=== PATIENT | male | born 1960 | race Caucasian/White ===

== ENCOUNTER 2017-12-29 12:40 | Inpatient (IN) | payer OTHER ==
[2017-12-29 12:57] VITALS: BMI 24.5
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
[2017-12-29] MEDS ORDERED: MAGNESIUM CITRATE 300 ML BOTTLE PO PRN (13:21)
[2017-12-29] MEDS ORDERED: guaiFENesin/D-METHORPHAN HB 10 ML UNIT-DOSE CUPS PO PRN (13:21)
[2017-12-29] MEDS ORDERED: NICOTINE POLACRILEX 2 MG GUM BUC PRN (13:21)
[2017-12-29] MEDS ORDERED: ACETAMINOPHEN 325 MG TABLET (FP) PO PRN (13:21)
[2017-12-29] MEDS ORDERED: MENTHOL/PHENOL 1 EACH UD MM PRN (13:21)
[2017-12-29] MEDS ORDERED: P-EPHED 60MG/TRIPROLIDI 2.5MG TABLET PO PRN (13:21)
[2017-12-29] MEDS ORDERED: MAG HYDROX/AL HYDROX/SIMETH 30 ML UNIT-DOSE CUP PO PRN (13:21)
[2017-12-29] MEDS ORDERED: NAPROXEN 500 MG TABLET (FP) PO PRN (13:24)
[2017-12-29] MEDS: GABAPENTIN 300 MG CAPSULE (FP) PO SCH ×2 (16:00→22:08)
[2017-12-29] MEDS: metFORMIN HCL 500 MG TABLET (FP) PO SCH (17:28)
[2017-12-29] MEDS: chlordiazePOXIDE HCL 25 MG CAPSULE PO PRN (17:28)
[2017-12-29] MEDS ORDERED: chlordiazePOXIDE HCL 10 MG CAPSULE PO ONE (20:54)
[2017-12-29] MEDS: hydrOXYzine PAMOATE 25 MG CAPSULE (FP) PO PRN (21:15)
--- NOTE | 2017-12-29 21:27 | PN ---
S Progress Note Note: Psychiatry Attending's on-call note : Called to address issue of seroquel. Mr Abreu is newly admitted to [address] [place] [address]. Patient is anxious about not missing his HS dose. S report reviewed. Medications reconciled. Vitals noted. Spoke to patient via telephone. Perceived as a reliable historian. " I have been on that medication for several years ". Patient is concerned over not being able to sleep tonight. " They promised me, downstairs, that someone would write me a dose ". " I have my bottles with me as proof that I am telling the truth ". Reassurance given to the patient. Regulations explained to patient. Medication confirmed by review of pharmacy claims of 12/28/17. At [facility]. Intervention : Seroquel 200 mg po hs. Dose is reduced. Precaution against drug-drug interactions. Possible with ETOH detoxification regimen, initiated on admission. Side effects/benefits revisited briefly with the patient. Made aware of potential for oversedation, accidental falls. Mr Abreu agrees to this plan of care . Titration will be done in AM after psychiatric evaluation.
[2017-12-29] MEDS: THIAMINE HCL 100 MG TABLET (FP) PO SCH (22:08)
[2017-12-29] MEDS: QUEtiapine FUMARATE 200 MG TABLET PO SCH (22:08)
[2017-12-29] MEDS: MELATONIN 5 MG TABLETS PO PRN (22:08)
[2017-12-29] MEDS: chlordiazePOXIDE HCL 25 MG CAPSULE PO SCH (22:08)
[2017-12-29 22:29] LABS: URINE APPEARANCE CLEAR; URINE BILIRUBIN NEGATIVE (<2.0 mg/dL); URINE COLOR COLORLESS; URINE GLUCOSE (UA) NEGATIVE (NEGATIVE); URINE KETONE NEGATIVE (NEGATIVE); URINE LEUK ESTERASE NEGATIVE (NEGATIVE); URINE NITRITE NEGATIVE (NEGATIVE); URINE PROTEIN NEGATIVE (NEGATIVE); URINE UROBILINOGEN NEGATIVE mg/dL (0.2-1.0)
[2017-12-29] MEDS: rOPINIRole HCL 1 MG TABLET (FP) PO SCH (23:55)
[2017-12-30] MEDS: metFORMIN HCL 500 MG TABLET (FP) PO SCH ×2 (07:08→17:25)
[2017-12-30] MEDS: chlordiazePOXIDE HCL 25 MG CAPSULE PO SCH ×4 (07:08→22:10)
[2017-12-30] MEDS: glipiZIDE 5 MG TABLET (FP) PO SCH (07:09)
[2017-12-30] MEDS: GABAPENTIN 300 MG CAPSULE (FP) PO SCH ×3 (07:09→22:10)
--- NOTE | 2017-12-30 07:46 | CONSULT ---
[facility] Psychiatric Consult - Data Date of interview: 12/30/17 Admission source: [facility] Identifying data: This is a 57 years old male, , father of two, homeless, with no income, with history of Bipolar Disorder, history of npsychiatric hospitalizations, reports history of Alcohol, Cocaine and Nicotine dependence, reports alcohol withdrawal symptoms and seeking detox. Substance Abuse History: Patient reports long chronic history of Alcohol dependence, , Cocaine and Nixotine dependence as well, , reports Alcohol withdrawal symptoms on admission, poor historian. Medical History: Restless leg syndrom, DM-II, Muscle Neuropathy Psychiatric History: Patient reportsm history of depression and anxiety, as per computer carries Bipolar Disorder, reports most recent psychiatric admission on 03-14 nonths ago at [facility] for safety, poor historyn, denies suicidal, homicidal history. Patient reports taking p[rior to admnission: Seroquel 400mg po qhs. Gabapentin 300mg po tid. 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 Patient agrees to be on Seroquel 200mg po qhs during detox protocol. Physical/Sexual Abuse/Trauma History: Denies Additional Comment: Seroquel 200mg po qhs. Gabapentin 300mg po tid Mental Status Exam - Mental Status Exam Alert and Oriented to: Person Cognitive Function: Fair Patient Appearance: Unkempt Mood: Sad Affect: Flat Patient Behavior: Sedated, Cooperative Speech Pattern: Inappropriate Voice Loudness: Mildly Soft/Quiet Thought Process: Circumstantial, Goal Oriented Thought Disorder: Being Controlled Hallucinations: Denies Suicidal Ideation: Denies Homicidal Ideation: Denies Insight/Judgement: Fair Sleep: Difficulty falling asleep Appetite: Weight loss Muscle strength/Tone: Mild Hypotonicity Gait/Station: Shuffling Additional Comments: Seroquel 200mg po qhs. Gabapentin 300mg po tid Psychiatric Findings - Problem List ([place] 1, 2,3) (1) Alcohol intoxication Current Visit: Yes Status: Acute Qualifiers: Complication of substance-induced condition: uncomplicated Qualified Code(s ): F10.920 - Alcohol use, unspecified with intoxication, uncomplicated (2) Cocaine dependence Current Visit: Yes Status: Chronic Qualifiers: Substance use status: uncomplicated Qualified Code(s): F14.20 - Cocaine dependence, uncomplicated (3) Diabetes Current Visit: Yes Status: Chronic Qualifiers: Diabetes mellitus type: type 2 Diabetes mellitus complication status: without complication (4) Nicotine dependence Current Visit: Yes Status: Chronic Qualifiers: Nicotine product type: cigarettes (5) Restless leg syndrome Current Visit: Yes Status: Chronic - Initial Treatment Plan Initial Treatment Plan: Seroquel 200mg po qhs. Gabapentin 300mg po tid
[2017-12-30] MEDS: FLUTICASONE PROP 0.05% 16 GM NASAL SPRAY NS SCH (10:10)
[2017-12-30] MEDS: PRENATAL VITAMINS W/ FOLIC ACID TABLET (FP) PO SCH (10:10)
[2017-12-30] MEDS: MAGNESIUM HYDROX 2400MG/30ML ORAL SUSPENSION 30 ML CUP PO PRN (10:12)
[2017-12-30 10:31] LABS: HEMATOCRIT 40.6 % (35.4-49); HEMOGLOBIN 13.1 GM/dL (11.7-16.9); MCH 31.4 pg (25.7-33.7); MCHC 32.2 g/dl (32.0-35.9); MEAN CELL VOLUME 97.5 fl (80-96); MEAN PLT VOLUME 11.7 fl (7.5-11.1); PLATELET COUNT 213 K/MM3 (134-434); RBC 4.17 M/mm3 (4.00-5.60); RDW 14.2 % (11.9-15.9); WHITE BLOOD COUNT 8.8 K/mm3 (4.0-10.0)
[2017-12-30 11:11] LABS: ALBUMIN 3.6 g/dl (3.4-5.0); ALK PHOS 72 U/L (45-117); ANION GAP 11 MMOL/L (8-16); BILIRUBIN,TOTAL 0.2 mg/dL (0.2-1); BLOOD UREA NITROGEN 15 mg/dL (7-18); CALCIUM 8.7 mg/dL (8.5-10.1); CHLORIDE 102 mmol/L (98-107); CO2 25 mmol/L (21-32); CREATININE 1.1 mg/dL (0.55-1.3); GLUCOSE,RANDOM 208 mg/dL (74-106); POTASSIUM 4.5 mmol/L (3.5-5.1); SGOT/AST 15 U/L (15-37); SGPT/ALT 20 U/L (13-61); SODIUM 139 mmol/L (136-145); TOT PROT 6.8 g/dl (6.4-8.2)
--- NOTE | 2017-12-30 11:23 | PN ---
S CIWA - CIWA Score Nausea/Vomitin-Mild Nausea/No Vomiting Muscle Tremors: 3 Anxiety: 2 Agitation: 2 Paroxysmal Sweats: 1-Minimal Palms Moist Orientation: 1-Uncertain about Date Tacttile Disturbances: 1-Very Mild Itch/Numbness Auditory Disturbances: 1-Very Mild Visual Disturbances: 0-None Headache: 1-Very Mild CIWA-Ar Total Score: 13 BHS Progress Note (SOAP) Subjective: sweat tremor anxiety restlessness trouble sleep at night Objective: 12/30/17 11:22 Vital Signs Temperature 98.1 F 12/30/17 09:51 Pulse Rate 78 12/30/17 09:51 Respiratory Rate 18 12/30/17 09:51 Blood Pressure 114/53 L 12/30/17 09:51 O2 Sat by Pulse Oximetry (%) Laboratory Last Values WBC 8.8 K/mm3 (4.0-10.0) 12/30/17 06:00 RBC 4.17 M/mm3 (4.00-5.60) 12/30/17 06:00 Hgb 13.1 GM/dL (11.7-16.9) 12/30/17 06:00 Hct 40.6 % (35.4-49) 12/30/17 06:00 MCV 97.5 fl (80-96) H 12/30/17 06:00 MCH 31.4 pg (25.7-33.7) 12/30/17 06:00 MCHC 32.2 g/dl (32.0-35.9) 12/30/17 06:00 RDW 14.2 % (11.9-15.9) 12/30/17 06:00 Plt Count 213 K/MM3 (134-434) 12/30/17 06:00 MPV 11.7 fl (7.5-11.1) H 12/30/17 06:00 Sodium 139 mmol/L (136-145) 12/30/17 06:00 Potassium 4.5 mmol/L (3.5-5.1) 12/30/17 06:00 Chloride 102 mmol/L (98-107) 12/30/17 06:00 Carbon Dioxide 25 mmol/L (21-32) 12/30/17 06:00 Anion Gap 11 MMOL/L (8-16) 12/30/17 06:00 BUN 15 mg/dL (7-18) 12/30/17 06:00 Creatinine 1.1 mg/dL (0.55-1.3) 12/30/17 06:00 Creat Clearance w eGFR > 60 (>60) 12/30/17 06:00 POC Glucometer 162 UNITS (80-120) 12/30/17 07:05 Random Glucose 208 mg/dL (74-106) H 12/30/17 06:00 Calcium 8.7 mg/dL (8.5-10.1) 12/30/17 06:00 Total Bilirubin 0.2 mg/dL (0.2-1) 12/30/17 06:00 AST 15 U/L (15-37) 12/30/17 06:00 ALT 20 U/L (13-61) 12/30/17 06:00 Alkaline Phosphatase 72 U/L (45-117) 12/30/17 06:00 Total Protein 6.8 g/dl (6.4-8.2) 12/30/17 06:00 Albumin 3.6 g/dl (3.4-5.0) 12/30/17 06:00 Urine Color Colorless 12/29/17 22:00 Urine Appearance Clear 12/29/17 22:00 Urine pH 5.0 (5.0-8.0) 12/29/17 22:00 Ur Specific [place] 1.004 (1.010-1.035) L 12/29/17 22:00 Urine Protein Negative (NEGATIVE) 12/29/17 22:00 Urine Glucose (UA) Negative (NEGATIVE) 12/29/17 22:00 Urine Ketones Negative (NEGATIVE) 12/29/17 22:00 Urine Blood Negative (NEGATIVE) 12/29/17 22:00 Urine Nitrite Negative (NEGATIVE) 12/29/17 22:00 Urine Bilirubin Negative (<2.0 mg/dL) 12/29/17 22:00 Urine Urobilinogen Negative mg/dL (0.2-1.0) 12/29/17 22:00 Ur Leukocyte Esterase Negative (NEGATIVE) 12/29/17 22:00 lab noted Assessment: 12/30/17 11:22 withdrawal sx Plan: continue detox
[2017-12-30] MEDS ORDERED: FLU VACCINE QUAD 60 MCG/0.5 ML (MDV 18-19) IM ONE (12:00)
[2017-12-30] MEDS: QUEtiapine FUMARATE 200 MG TABLET PO SCH (22:10)
[2017-12-30] MEDS: THIAMINE HCL 100 MG TABLET (FP) PO SCH (22:10)
[2017-12-30] MEDS: rOPINIRole HCL 1 MG TABLET (FP) PO SCH (22:11)
[2017-12-30] MEDS: MELATONIN 5 MG TABLETS PO PRN (23:25)
[2017-12-31] MEDS: chlordiazePOXIDE HCL 25 MG CAPSULE PO SCH ×3 (05:26→17:21)
[2017-12-31] MEDS: GABAPENTIN 300 MG CAPSULE (FP) PO SCH (05:26)
[2017-12-31] MEDS: metFORMIN HCL 500 MG TABLET (FP) PO SCH ×2 (06:26→17:21)
[2017-12-31] MEDS: glipiZIDE 5 MG TABLET (FP) PO SCH (06:26)
[2017-12-31] MEDS: FLUTICASONE PROP 0.05% 16 GM NASAL SPRAY NS SCH (10:33)
[2017-12-31] MEDS: hydrOXYzine PAMOATE 25 MG CAPSULE (FP) PO PRN (10:35)
[2017-12-31] MEDS: PRENATAL VITAMINS W/ FOLIC ACID TABLET (FP) PO SCH (10:36)
[2017-12-31] MEDS ORDERED: GABAPENTIN 300 MG CAPSULE (FP) PO SCH (10:52)
--- NOTE | 2017-12-31 13:17 | PN ---
S CIWA - CIWA Score Nausea/Vomitin-No Nausea/No Vomiting Muscle Tremors: 3 Anxiety: 1-Mildly Anxious Agitation: 2 Paroxysmal Sweats: 1-Minimal Palms Moist Orientation: 0-Oriented Tacttile Disturbances: 1-Very Mild Itch/Numbness Auditory Disturbances: 0-None Visual Disturbances: 0-None Headache: 1-Very Mild CIWA-Ar Total Score: 9 BHS Progress Note (SOAP) Subjective: sweat tremor no gi distress less anxiety social with peers in day rooms Objective: 12/31/17 13:16 Vital Signs Temperature 97.9 F 12/31/17 09:31 Pulse Rate 76 12/31/17 09:31 Respiratory Rate 18 12/31/17 09:31 Blood Pressure 109/63 12/31/17 09:31 O2 Sat by Pulse Oximetry (%) Laboratory Last Values WBC 8.8 K/mm3 (4.0-10.0) 12/30/17 06:00 RBC 4.17 M/mm3 (4.00-5.60) 12/30/17 06:00 Hgb 13.1 GM/dL (11.7-16.9) 12/30/17 06:00 Hct 40.6 % (35.4-49) 12/30/17 06:00 MCV 97.5 fl (80-96) H 12/30/17 06:00 MCH 31.4 pg (25.7-33.7) 12/30/17 06:00 MCHC 32.2 g/dl (32.0-35.9) 12/30/17 06:00 RDW 14.2 % (11.9-15.9) 12/30/17 06:00 Plt Count 213 K/MM3 (134-434) 12/30/17 06:00 MPV 11.7 fl (7.5-11.1) H 12/30/17 06:00 Sodium 139 mmol/L (136-145) 12/30/17 06:00 Potassium 4.5 mmol/L (3.5-5.1) 12/30/17 06:00 Chloride 102 mmol/L (98-107) 12/30/17 06:00 Carbon Dioxide 25 mmol/L (21-32) 12/30/17 06:00 Anion Gap 11 MMOL/L (8-16) 12/30/17 06:00 BUN 15 mg/dL (7-18) 12/30/17 06:00 Creatinine 1.1 mg/dL (0.55-1.3) 12/30/17 06:00 Creat Clearance w eGFR > 60 (>60) 12/30/17 06:00 POC Glucometer 223 UNITS (80-120) 12/31/17 05:28 Random Glucose 208 mg/dL (74-106) H 12/30/17 06:00 Calcium 8.7 mg/dL (8.5-10.1) 12/30/17 06:00 Total Bilirubin 0.2 mg/dL (0.2-1) 12/30/17 06:00 AST 15 U/L (15-37) 12/30/17 06:00 ALT 20 U/L (13-61) 12/30/17 06:00 Alkaline Phosphatase 72 U/L (45-117) 12/30/17 06:00 Total Protein 6.8 g/dl (6.4-8.2) 12/30/17 06:00 Albumin 3.6 g/dl (3.4-5.0) 12/30/17 06:00 Urine Color Colorless 12/29/17 22:00 Urine Appearance Clear 12/29/17 22:00 Urine pH 5.0 (5.0-8.0) 12/29/17 22:00 Ur Specific [place] 1.004 (1.010-1.035) L 12/29/17 22:00 Urine Protein Negative (NEGATIVE) 12/29/17 22:00 Urine Glucose (UA) Negative (NEGATIVE) 12/29/17 22:00 Urine Ketones Negative (NEGATIVE) 12/29/17 22:00 Urine Blood Negative (NEGATIVE) 12/29/17 22:00 Urine Nitrite Negative (NEGATIVE) 12/29/17 22:00 Urine Bilirubin Negative (<2.0 mg/dL) 12/29/17 22:00 Urine Urobilinogen Negative mg/dL (0.2-1.0) 12/29/17 22:00 Ur Leukocyte Esterase Negative (NEGATIVE) 12/29/17 22:00 RPR Titer Nonreactive (NONREACTIVE) 12/30/17 06:00 HIV 1&2 Antibody Screen Negative 12/30/17 06:00 HIV P24 Antigen Negative 12/30/17 06:00 lab noted Assessment: 12/31/17 13:16 withdrawal sx Plan: continue detox
[2017-12-31] MEDS: GABAPENTIN 400 MG CAPSULE (FP) PO SCH ×2 (13:29→22:24)
[2017-12-31] MEDS: chlordiazePOXIDE HCL 25 MG CAPSULE PO PRN (13:29)
[2017-12-31] MEDS: QUEtiapine FUMARATE 200 MG TABLET PO SCH (22:24)
[2017-12-31] MEDS: MELATONIN 5 MG TABLETS PO PRN (22:24)
[2017-12-31] MEDS: chlordiazePOXIDE 5 MG CAPSULE PO SCH (22:24)
[2017-12-31] MEDS: THIAMINE HCL 100 MG TABLET (FP) PO SCH (22:24)
[2017-12-31] MEDS: rOPINIRole HCL 1 MG TABLET (FP) PO SCH (22:25)
[2018-01-01] MEDS: chlordiazePOXIDE 5 MG CAPSULE PO SCH ×2 (05:28→10:40)
[2018-01-01] MEDS: GABAPENTIN 400 MG CAPSULE (FP) PO SCH (05:29)
[2018-01-01] MEDS: metFORMIN HCL 500 MG TABLET (FP) PO SCH (06:44)
[2018-01-01] MEDS: glipiZIDE 5 MG TABLET (FP) PO SCH (06:45)
[2018-01-01 09:11] VITALS: BP 112/62; PULSE 99; TEMP 98.4
[2018-01-01] MEDS: PRENATAL VITAMINS W/ FOLIC ACID TABLET (FP) PO SCH (10:40)
[2018-01-01] MEDS: FLUTICASONE PROP 0.05% 16 GM NASAL SPRAY NS SCH (10:41)
--- NOTE | 2018-01-01 10:48 | PN ---
BHS Progress Note (SOAP) Subjective: irritable agitation sweats Objective: 01/01/18 10:47 Vital Signs Temperature 98.4 F 01/01/18 09:11 Pulse Rate 99 H 01/01/18 09:11 Respiratory Rate 18 01/01/18 09:11 Blood Pressure 112/62 01/01/18 09:11 O2 Sat by Pulse Oximetry (%) aaox3 ambulating no acute distress Assessment: 01/01/18 10:47 mild withdrawal sx Plan: continue detox increase fluids d/c in am
--- NOTE | 2018-01-01 10:49 | PN ---
Psychiatric Progress Note Vital Signs: Vital Signs Period Temp Pulse Resp BP Sys/Clale Pulse Ox Last 24 Hr 98.1 F-98.7 F 76-99 -18 112-137/61-70 Date of Session: 01/02/18 Chief Complaint:: "I need my seroquel increased." HPI: Patient with a history of alcohol, cocaine, and nicotine dependence. ROS: Restless leg syndrom, DM-II, Muscle Neuropathy Current Medications: Active Medications Generic Name Dose Route Start Last Admin Trade Name Freq PRN Reason Stop Dose Admin Acetaminophen 650 mg 12/29/17 13:21 Tylenol - PO Q4H PRN FEVER Al Hydroxide/Mg Hydroxide 30 ml 12/29/17 13:21 Mylanta Oral Suspension - PO Q6H PRN DYSPEPSIA Chlordiazepoxide HCl 15 mg 12/31/17 23:00 01/01/18 10:40 Librium - PO 01/01/18 17:01 15 mg [id number] WILD Administration Chlordiazepoxide HCl 25 mg 12/29/17 13:21 12/31/17 13:29 Librium - PO 01/01/18 13:20 25 mg Q4H PRN Administration WITHDRAWAL(CONT SUBST) Chlordiazepoxide HCl 10 mg 01/01/18 23:00 Librium - PO 01/02/18 17:01 [id number] WILD Eucalyptus/Menthol/Phenol/Sorbitol 1 each 12/29/17 13:21 Cepastat Lozenge - MM Q4H PRN SORE THROAT Fluticasone Propionate 2 spray 12/30/17 10:00 01/01/18 10:41 Flonase - NS 2 spray DAILY WILD Administration Gabapentin 400 mg 12/31/17 14:00 01/01/18 05:29 Neurontin - PO 400 mg TID WILD Administration Glipizide 5 mg 12/30/17 07:00 01/01/18 06:45 Glucotrol - PO 5 mg DAILY@0700 WILD Administration Guaifenesin 10 ml 12/29/17 13:21 Robitussin Dm - PO Q6H PRN COUGH Hydroxyzine Pamoate 25 mg 12/29/17 20:54 12/31/17 10:35 Vistaril - PO 25 mg Q4H PRN Administration FOR ITCHING Magnesium Citrate 300 ml 12/29/17 13:21 Citroma - PO Q48H PRN CONSTIPATION Magnesium Hydroxide 30 ml 12/29/17 13:21 12/30/17 10:12 Milk Of Magnesia - PO 30 ml DAILY PRN Administration CONSTIPATION Melatonin 5 mg 12/29/17 22:00 12/31/17 22:24 Melatonin PO 5 mg HS PRN Administration INSOMNIA Metformin HCl 1,000 mg 12/29/17 16:30 01/01/18 06:44 Glucophage - PO 1,000 mg BID@0700,1630 WILD Administration Nicotine Polacrilex 2 mg 12/29/17 13:21 Nicorette Gum - BUC Q2H PRN NICOTINE REPLACEMENT RX Multivit/Folic Acid/Iron 1 tab 12/30/17 10:00 01/01/18 10:40 Vitamins (Sjr) - PO 1 tab DAILY WILD Administration Pseudoephedrine/Triprolidine 1 combo 12/29/17 13:21 Actifed - PO TID PRN NASAL CONGESTION Quetiapine Fumarate 200 mg 12/29/17 22:00 12/31/17 22:24 Seroquel - PO 200 mg HS WILD Administration Ropinirole HCl 1 mg 12/29/17 22:00 12/31/17 22:25 Requip - PO 1 mg HS WILD Administration Thiamine HCl 100 mg 12/29/17 22:00 12/31/17 22:24 Vitamin B1 - PO 100 mg HS WILD Administration Medication(s) Change(s): Yes. Will increase seroquel 200mg to 300mg qhs. Current Side Effect: No Lab tests ordered: No Lab tests reviewed: Yes Provider note:: Patient requesting an increase in seroquel dosages. Dr. Mckinley and Dr. Gilbert's note read and appreciated. He is currently prescribed seroquel 200mg qhs but reports taking seroquel 400mg while at home. Medication was lowered upon admission to detox as a precaution against drug-drug interactions. Pharmacy claims reviewed. An electronic prescription of seroquel 400mg was sent to patient's pharmacy on 12/28/17 No oversedation noted. Will increase seroquel dose to 300mg. Benefits and side effects discussed. Verbal consent given. Total face to face time:: 25 Mental Status Exam - Mental Status Exam Alert and Oriented to: Time, Place, Person Cognitive Function: Good Patient Appearance: Well Groomed Mood: Hopeful Affect: Appropriate Patient Behavior: Appropriate, Cooperative Speech Pattern: Clear, Appropriate Voice Loudness: Normal Thought Process: Intact, Goal Oriented Thought Disorder: Not Present Hallucinations: Denies Suicidal Ideation: Denies Homicidal Ideation: Denies Insight/Judgement: Poor Sleep: Poorly Appetite: Fair Muscle strength/Tone: Normal Gait/Station: Normal Psychiatric Treatment Plan - Problem List (1) Alcohol dependence Current Visit: Yes (2) Cocaine dependence Current Visit: Yes Qualifiers: Substance use status: uncomplicated Qualified Code(s): F14.20 - Cocaine dependence, uncomplicated (3) Nicotine dependence Current Visit: Yes Qualifiers: Nicotine product type: cigarettes (4) Substance induced mood disorder Current Visit: Yes (5) Substance-induced sleep disorder Current Visit: Yes
[2018-01-01] MEDS: MAGNESIUM HYDROX 2400MG/30ML ORAL SUSPENSION 30 ML CUP PO PRN (10:59)
--- NOTE | 2018-01-01 13:51 | PN ---
BHS Progress Note Note: pt states I want to go home. Pt signed out AMA.
--- NOTE | 2018-01-01 13:56 | DS ---
[facility] Detox Discharge Summary Admission Date: 12/29/17 - History Present History: Alcohol Dependence, Cocaine Dependence - Physical Exam Results Vital Signs: Vital Signs Temperature 98.4 F 01/01/18 09:11 Pulse Rate 99 H 01/01/18 09:11 Respiratory Rate 18 01/01/18 09:11 Blood Pressure 112/62 01/01/18 09:11 O2 Sat by Pulse Oximetry (%) - Treatment Hospital Course: Discharged Condition Good - Medication Discharge Medications: Ambulatory Orders Fluticasone Prop 0.05% Nasal [Flonase -] 2 spray NS DAILY 12/29/17 Gabapentin [Neurontin -] 300 mg PO Q8H 12/29/17 Glipizide [Glipizide Xl] 5 mg PO DAILY 12/29/17 Metformin HCl [Glucophage] 1,000 mg PO BID 12/29/17 Naproxen [Naprosyn -] 500 mg PO BID 12/29/17 Quetiapine Fumarate [Seroquel -] 400 mg PO HS 12/29/17 Ropinirole HCl [Requip -] 1 mg PO HS 12/29/17 Quetiapine Fumarate [Seroquel -] 200 mg PO HS #30 tablet 12/30/17 - Diagnosis (1) Substance induced mood disorder Status: Acute (2) Substance-induced sleep disorder Status: Acute (3) Chronic pain Status: Chronic Qualifiers: Chronic pain type: chronic pain syndrome Qualified Code(s): G89.4 - Chronic pain syndrome (4) Cocaine dependence Status: Chronic Qualifiers: Substance use status: uncomplicated Qualified Code(s): F14.20 - Cocaine dependence, uncomplicated (5) Diabetes Status: Chronic Qualifiers: Diabetes mellitus type: type 2 Diabetes mellitus complication status: without complication (6) Nicotine dependence Status: Chronic Qualifiers: Nicotine product type: cigarettes (7) Restless leg syndrome Status: Chronic (8) Alcohol dependence with uncomplicated withdrawal Status: Chronic - AMA Did Patient Leave Against Medical Advice: Yes (going home.)
[2018-01-01] MEDS ORDERED: QUEtiapine FUMARATE 300 MG TABLET PO SCH (22:00)
[2018-01-01] MEDS ORDERED: chlordiazePOXIDE HCL 10 MG CAPSULE PO SCH (23:00)
== END 2018-01-01 12:31 | disposition left against medical advice (07) | DRG 894 ==
LOC: YASAS 12:40 → Y6N 15:14
PROVIDERS: ADMIT Neuromusculoskeletal Medicine & OMM; ATTEND Neuromusculoskeletal Medicine & OMM
PROC: HZ2ZZZZ Detoxification Services for Substance Abuse Treatment (ICD-10-PCS; principal; 2017-12-29)
DX: F10.230 Alcohol dependence with withdrawal, uncomplicated (principal); F14.20 Cocaine dependence, uncomplicated; F19.282 Other psychoactive substance dependence with psychoactive substance-induced sleep disorder; F17.210 Nicotine dependence, cigarettes, uncomplicated; F19.24 Other psychoactive substance dependence with psychoactive substance-induced mood disorder; E11.9 Type 2 diabetes mellitus without complications; Z79.84 Long term (current) use of oral hypoglycemic drugs; G25.81 Restless legs syndrome; G89.4 Chronic pain syndrome; Z59.0 Homelessness
CPT/HCPCS: 36415; 80053; 81003; 82962; 85027; 86593; 87389; 90688; G0008

== ENCOUNTER 2018-02-24 12:36 | Inpatient (IN) | payer OTHER ==
[2018-02-24 13:20] VITALS: BMI 22.1
--- NOTE | 2018-02-24 17:12 | HP ---
CIWA Score Nausea/Vomitin Muscle Tremors: 2 Anxiety: 2 Agitation: 2 Paroxysmal Sweats: 3 Orientation: 0-Oriented Tacttile Disturbances: 2-Mild Itch/Numbness/Burn Auditory Disturbances: 0-None Visual Disturbances: 0-None Headache: 2-Mild CIWA-Ar Total Score: 15 - Admission Criteria OASAS Guidelines: Admission for Medically Managed Detox: Requires at least one of the followin. CIWA greater than 12 2. Seizures within the past 24 hours 3. Delirium tremens within the past 24 hours 4. Hallucinations within the past 24 hours 5. Acute intervention needed for co occurring medical disorder 6. Acute intervention needed for co occurring psychiatric disorder 7. Severe withdrawal that cannot be handled at a lower level of care (continued vomiting, continued diarrhea, abnormal vital signs) requiring intravenous medication and/or fluids 8. Patient presents the following: CIWA greater than 12 Admission Criteria Met: Admission criteria met Admission ROS BHS - HPI Chief Complaint: I'm drinking too much - I have to to stop. Allergies/Adverse Reactions: Allergies Allergy/AdvReac Type Severity Reaction Status Date / Time No Known Allergies Allergy Verified 02/24/18 16:14 History of Present Illness: 57 y/o m pt with lonstanding h/o chronic alcoholism seeking detox and rehab. Exam Limitations: No Limitations - Ebola screening Have you traveled outside of the country in the last 21 days: No Have you had contact with anyone from an Ebola affected area: No Have you been sick,other than usual withdrawal symptoms: No Do you have a fever: No - Review of Systems Constitutional: Loss of Appetite, Malaise, Changes in sleep, Weakness, Unintentional Wgt. Loss (15 lbs x 2 months) EENT: reports: Nose Congestion, Dental Problems (need dental work) Respiratory: reports: No Symptoms reported Cardiac: reports: No Symptoms Reported GI: reports: Nausea, Poor Appetite : reports: No Symptoms Reported Musculoskeletal: reports: Muscle Pain, Other (restless legs) Integumentary: reports: Pruritus Neuro: reports: Headache Endocrine: reports: Increased Thirst, Increased Urine Hematology: reports: No Symptoms Reported Psychiatric: reports: Anxious, Depressed Other Systems: Reviewed and Negative Patient History - Patient Medical History Hx Anemia: No Hx Asthma: No Hx Chronic Obstructive Pulmonary Disease (COPD): No Hx Cancer: No Hx Cardiac Disorders: No Hx Congestive Heart Failure: No Hx Hypertension: No Hx Hypercholesterolemia: No Hx Pacemaker: No HX Cerebrovascular Accident: No Hx Seizures: No Hx Dementia: No Hx Diabetes: Yes Hx Gastrointestinal Disorders: No Hx Liver Disease: No Hx Genitourinary Disorders: No Hx Sexually Transmitted Disorders: No Hx Renal Disease (ESRD): No Hx Thyroid Disease: No Hx Human Immunodeficiency Virus (HIV): No Hx Hepatitis C: No Hx Depression: Yes Hx Suicide Attempt: No Hx Bipolar Disorder: Yes Hx Schizophrenia: No Other Medical History: arthritis - Patient Surgical History Past Surgical History: Yes Other Surgical History: R index finger sx for osteomyelitis - PPD History Previous Implant?: Yes Documented Results: Negative w/o proof Implanted On Prior [facility] Admission?: Yes Date: 12/31/17 PPD to be Administered?: No - Reproductive History Patient is a Female of Child Bearing Age (11 -55 yrs old): No - Smoking Cessation Smoking history: Current every day smoker Have you smoked in the past 12 months: Yes Aproximately how many cigarettes per day: 12 Cigars Per Day: 0 Hx Chewing Tobacco Use: No Initiated information on smoking cessation: Yes 'Breaking Loose' booklet given: 02/24/18 - Substance & Tx. History Hx Alcohol Use: Yes Hx Substance Use: Yes Substance Use Type: Alcohol, Tranquilizers Hx Substance Use Treatment: Yes ([facility]) - Substances Abused Alcohol Route: Oral Frequency: Daily Amount used: 3 pints vodka Age of first use: 14 Date of Last Use: 02/24/18 Cocaine Route: Smoking Frequency: 3-6 times per week Amount used: $20. Age of first use: 38 Date of Last Use: 02/23/18 Alprazolam (Xanax) Route: Oral Frequency: 1-2 times per week Amount used: 2-3mg Age of first use: 38 Date of Last Use: 02/22/18 Family Disease History - Family Disease History Family Disease History: Diabetes: Father, Mother (colon CA), CA: Mother, Other: Brother (d. liver disease age 43 ), Sister (1 sister with lupus , 1 sister A & W ), Son (2 sons A & W) Admission Physical Exam BHS - Vital Signs Vital Signs: Vital Signs - 24 hr 02/24/18 13:17 Temperature 98.7 F Pulse Rate 84 Respiratory 18 Rate Blood Pressure 138/67 57 y/o m pt aox3 in nad ,ambulating well cooperative with exam. 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 NML intact, Fully Oriented, Alert, Motor Strength 5/5 Integumentary: Yes: Moist Lymphatic: Yes: Within Normal Limits - Diagnostic (1) Alcohol dependence with uncomplicated withdrawal Current Visit: Yes Status: Chronic (2) Cocaine dependence Current Visit: Yes Status: Chronic Qualifiers: Substance use status: uncomplicated Qualified Code(s): F14.20 - Cocaine dependence, uncomplicated (3) Diabetes Current Visit: Yes Status: Chronic Qualifiers: Diabetes mellitus type: type 2 Diabetes mellitus complication status: without complication (4) Nicotine dependence Current Visit: Yes Status: Chronic Qualifiers: Nicotine product type: cigarettes (5) Restless leg syndrome Current Visit: Yes Status: Chronic (6) Bipolar 1 disorder Current Visit: Yes Status: Acute Cleared for Admission [facility] - Detox or Rehab [facility] Level of Care: Medically Managed Detox Regimen/Protocol: Librium [facility] Breath Alcohol Content Breath Alcohol Content: 0.071 Urine Drug Screen - Results Drug Screen Negative: No Urine Drug Screen Results: NIKUNJ-Cocaine, BAR-Barbiturates
[2018-02-24] MEDS ORDERED: NICOTINE POLACRILEX 4 MG GUM BC PRN (17:28)
[2018-02-24] MEDS ORDERED: MAG HYDROX/AL HYDROX/SIMETH 30 ML UNIT-DOSE CUP PO PRN (17:28)
[2018-02-24] MEDS ORDERED: P-EPHED 60MG/TRIPROLIDI 2.5MG TABLET PO PRN (17:28)
[2018-02-24] MEDS ORDERED: MENTHOL/PHENOL 1 EACH UD MM PRN (17:28)
[2018-02-24] MEDS ORDERED: MAGNESIUM CITRATE 300 ML BOTTLE PO PRN (17:28)
[2018-02-24] MEDS ORDERED: LOPERAMIDE HCL 2 MG CAPSULE PO PRN (17:28)
[2018-02-24] MEDS ORDERED: hydrOXYzine PAMOATE 25 MG CAPSULE (FP) PO PRN (17:28)
[2018-02-24] MEDS ORDERED: ACETAMINOPHEN 325 MG TABLET (FP) PO PRN (17:28)
[2018-02-24] MEDS ORDERED: chlordiazePOXIDE HCL 25 MG CAPSULE PO PRN (17:28)
[2018-02-24] MEDS ORDERED: chlordiazePOXIDE HCL 25 MG CAPSULE PO ONE (18:00)
[2018-02-24] MEDS ORDERED: QUEtiapine FUMARATE 200 MG TABLET PO ONE (20:19)
[2018-02-24] MEDS ORDERED: MELATONIN 5 MG TABLETS PO PRN (22:00)
[2018-02-24] MEDS: THIAMINE HCL 100 MG TABLET (FP) PO SCH (22:16)
[2018-02-24] MEDS: GABAPENTIN 300 MG CAPSULE (FP) PO SCH (22:17)
[2018-02-24] MEDS: chlordiazePOXIDE HCL 25 MG CAPSULE PO SCH (22:17)
[2018-02-25] MEDS: chlordiazePOXIDE HCL 25 MG CAPSULE PO SCH ×4 (05:57→22:06)
[2018-02-25] MEDS: GABAPENTIN 300 MG CAPSULE (FP) PO SCH ×3 (05:58→22:06)
[2018-02-25] MEDS: metFORMIN HCL 500 MG TABLET (FP) PO SCH ×2 (06:45→17:02)
[2018-02-25] MEDS ORDERED: INSULIN SLIDING SCALE (NOVOLOG) 1 VIAL SQ ONE (06:46)
[2018-02-25] MEDS: INSULIN SLIDING SCALE (NOVOLOG) 1 VIAL SQ SCH ×2 (07:48→17:02)
--- NOTE | 2018-02-25 08:59 | CONSULT ---
[facility] Psychiatric Consult - Data Date of interview: 02/25/18 Admission source: [facility] Identifying data: Patient is a 57 year old male, father of two, unemployed, and currently homeless. This is one of multiple admissions for patient. Patient admitted to for alcohol and cocaine dependence. Substance Abuse History: - Substance & Tx. History. Hx Alcohol Use: Yes. Hx Substance Use: Yes. Substance Use Type: Alcohol, Tranquilizers. Hx Substance Use Treatment: Yes ([facility] - Substances Abused. Alcohol. Route: Oral. Frequency: Daily. Amount used: 3 pints vodka. Age of first use: 14. Date of Last Use: 02/24/18. Cocaine. Route: Smoking. Frequency: 3-6 times per week. Amount used: $20. Age of first use: 38. Date of Last Use: 02/23/18. * * Alprazolam (Xanax). Route: Oral. Frequency: 1-2 times per week. Amount used : 2-3mg. Age of first use: 38. Date of Last Use: 02/22/18 Medical History: Diabetes, R index finger sx for osteomyelitis, arthritis Psychiatric History: Patient presented as fatigue and slightly lethargic. He was also irritable at first but was eventually able to cooperate with scenario writer and medical students. Mr. Abreu reports a history of multiple psychiatric hospitalizations at various facilities in [place] and [facility]. Self diagnosis of of bipolar disorder. [facility] [place] but states he has not seen his psychiatrist in two months because he did not get along with him. Patient is now receiving his prescriptions of seroquel 400mg from his primary care physician. Patient reports sub-optimal adhernence to seroquel. Mr. Galdamez denies h/o suicide attempt. Physical/Sexual Abuse/Trauma History: denies. Mental Status Exam - Mental Status Exam Alert and Oriented to: Time, Place, Person Cognitive Function: Good Patient Appearance: Well Groomed Mood: Euthymic, Irritable (irritable at first but was eventually able to cooperate with scenario writer and medical students. ) Affect: Mood Congruent Patient Behavior: Fatigued Speech Pattern: Delayed Voice Loudness: Moderately Soft/Quiet Thought Process: Goal Oriented Thought Disorder: Not Present Hallucinations: Denies Suicidal Ideation: Denies Homicidal Ideation: Denies Insight/Judgement: Poor Sleep: Fair Appetite: Fair Muscle strength/Tone: Normal Gait/Station: Normal Psychiatric Findings - Problem List ([place] 1, 2,3) (1) Alcohol dependence with uncomplicated withdrawal Current Visit: Yes Status: Acute (2) Cocaine dependence Current Visit: Yes Status: Chronic Qualifiers: Substance use status: uncomplicated Qualified Code(s): F14.20 - Cocaine dependence, uncomplicated (3) Nicotine dependence Current Visit: Yes Status: Chronic Qualifiers: Nicotine product type: cigarettes (4) Substance induced mood disorder Current Visit: Yes Status: Acute (5) Substance-induced sleep disorder Current Visit: Yes Status: Acute - Initial Treatment Plan Initial Treatment Plan: Psychoeducation provided. Detoxification in progress. Seroquel 400mg qhs ordered by ANGULAR JS DEVELOPER last night. Patient was lethargic and fatigue this morning and is agreeable to accepting a lower dose tonight. Will order Seroquel 300mg HS. Benefits and side effects discussed. Verbal consent given.
[2018-02-25] MEDS: NICOTINE 21 MG/24 HOURS TOPICAL PATCH TD SCH (10:03)
[2018-02-25] MEDS: PRENATAL VITAMINS W/ FOLIC ACID TABLET (FP) PO SCH (10:03)
[2018-02-25 10:58] LABS: HEMATOCRIT 38.4 % (35.4-49); HEMOGLOBIN 13.3 GM/dL (11.7-16.9); MCH 33.8 pg (25.7-33.7); MCHC 34.7 g/dl (32.0-35.9); MEAN CELL VOLUME 97.6 fl (80-96); MEAN PLT VOLUME 9.7 fl (7.5-11.1); PLATELET COUNT 224 K/MM3 (134-434); RBC 3.93 M/mm3 (4.00-5.60); RDW 14.5 % (11.9-15.9); WHITE BLOOD COUNT 6.3 K/mm3 (4.0-10.0)
[2018-02-25 11:08] LABS: ALBUMIN 3.3 g/dl (3.4-5.0); ALK PHOS 68 U/L (45-117); ANION GAP 7 MMOL/L (8-16); BILIRUBIN,TOTAL 0.3 mg/dL (0.2-1); BLOOD UREA NITROGEN 12 mg/dL (7-18); CALCIUM 8.3 mg/dL (8.5-10.1); CHLORIDE 105 mmol/L (98-107); CO2 31 mmol/L (21-32); CREATININE 0.7 mg/dL (0.55-1.3); GLUCOSE,RANDOM 173 mg/dL (74-106); POTASSIUM 3.8 mmol/L (3.5-5.1); SGOT/AST 26 U/L (15-37); SGPT/ALT 44 U/L (13-61); SODIUM 143 mmol/L (136-145); TOT PROT 5.9 g/dl (6.4-8.2)
--- NOTE | 2018-02-25 11:38 | PN ---
[facility] CIWA - CIWA Score Nausea/Vomitin-Mild Nausea/No Vomiting Muscle Tremors: 2 Anxiety: 2 Agitation: 2 Paroxysmal Sweats: 1-Minimal Palms Moist Orientation: 1-Uncertain about Date Tacttile Disturbances: 0-None Auditory Disturbances: 0-None Visual Disturbances: 0-None Headache: 2-Mild CIWA-Ar Total Score: 11 S Progress Note (SOAP) Subjective: tremor sweat irritable gi distress Objective: 02/25/18 11:37 Vital Signs Temperature 96.8 F L 02/25/18 09:12 Pulse Rate 119 H 02/25/18 09:12 Respiratory Rate 18 02/25/18 09:12 Blood Pressure 114/69 02/25/18 09:12 O2 Sat by Pulse Oximetry (%) Laboratory Last Values WBC 6.3 K/mm3 (4.0-10.0) 02/25/18 07:00 RBC 3.93 M/mm3 (4.00-5.60) L 02/25/18 07:00 Hgb 13.3 GM/dL (11.7-16.9) 02/25/18 07:00 Hct 38.4 % (35.4-49) 02/25/18 07:00 MCV 97.6 fl (80-96) H 02/25/18 07:00 MCH 33.8 pg (25.7-33.7) H 02/25/18 07:00 MCHC 34.7 g/dl (32.0-35.9) 02/25/18 07:00 RDW 14.5 % (11.9-15.9) 02/25/18 07:00 Plt Count 224 K/MM3 (134-434) 02/25/18 07:00 MPV 9.7 fl (7.5-11.1) D 02/25/18 07:00 Sodium 143 mmol/L (136-145) 02/25/18 07:00 Potassium 3.8 mmol/L (3.5-5.1) 02/25/18 07:00 Chloride 105 mmol/L (98-107) 02/25/18 07:00 Carbon Dioxide 31 mmol/L (21-32) 02/25/18 07:00 Anion Gap 7 MMOL/L (8-16) L 02/25/18 07:00 BUN 12 mg/dL (7-18) 02/25/18 07:00 Creatinine 0.7 mg/dL (0.55-1.3) 02/25/18 07:00 Creat Clearance w eGFR > 60 (>60) 02/25/18 07:00 Random Glucose 173 mg/dL (74-106) H 02/25/18 07:00 Calcium 8.3 mg/dL (8.5-10.1) L 02/25/18 07:00 Total Bilirubin 0.3 mg/dL (0.2-1) 02/25/18 07:00 AST 26 U/L (15-37) 02/25/18 07:00 ALT 44 U/L (13-61) 02/25/18 07:00 Alkaline Phosphatase 68 U/L (45-117) 02/25/18 07:00 Total Protein 5.9 g/dl (6.4-8.2) L 02/25/18 07:00 Albumin 3.3 g/dl (3.4-5.0) L 02/25/18 07:00 lab noted Assessment: 02/25/18 11:38 withdrawal sx Plan: continue detox
--- NOTE | 2018-02-25 11:59 | EKG ---
Test Reason : Blood Pressure : / mmHG Vent. Rate : 084 BPM Atrial Rate : 084 BPM P-R Int : 132 ms QRS Dur : 110 ms QT Int : 382 ms P-R-T Axes : 064 067 072 degrees QTc Int : 451 ms NORMAL SINUS RHYTHM NORMAL ECG NO PREVIOUS ECGS AVAILABLE Confirmed by MATTHEW BRUNO MD ([id number]) on 02/25/2018 11:59:07 AM Referred By: Confirmed By:MATTHEW BRUNO MD
[2018-02-25] MEDS ORDERED: BISACODYL 5 MG TABLET.DR (FP) PO PRN (14:14)
[2018-02-25] MEDS: BISACODYL 5 MG TABLET.DR (FP) PO PRN (17:28)
[2018-02-25] MEDS: ARTIFICIAL TEARS (POLYVINYL ALCOHOL) OPTH DROPS OU SCH ×2 (17:31→22:06)
[2018-02-25] MEDS: rOPINIRole HCL 1 MG TABLET (FP) PO SCH (22:06)
[2018-02-25] MEDS: THIAMINE HCL 100 MG TABLET (FP) PO SCH (22:06)
[2018-02-25] MEDS: QUEtiapine FUMARATE 300 MG TABLET PO SCH (22:06)
[2018-02-26] MEDS: chlordiazePOXIDE HCL 25 MG CAPSULE PO SCH ×3 (06:04→17:20)
[2018-02-26] MEDS: metFORMIN HCL 500 MG TABLET (FP) PO SCH ×2 (06:04→17:19)
[2018-02-26] MEDS: GABAPENTIN 300 MG CAPSULE (FP) PO SCH ×3 (06:04→22:08)
[2018-02-26] MEDS: INSULIN SLIDING SCALE (NOVOLOG) 1 VIAL SQ SCH ×2 (06:08→17:20)
[2018-02-26] MEDS: PRENATAL VITAMINS W/ FOLIC ACID TABLET (FP) PO SCH (10:12)
[2018-02-26] MEDS: NICOTINE 21 MG/24 HOURS TOPICAL PATCH TD SCH (10:12)
[2018-02-26] MEDS: ARTIFICIAL TEARS (POLYVINYL ALCOHOL) OPTH DROPS OU SCH ×4 (10:12→22:07)
[2018-02-26] MEDS: guaiFENesin/D-METHORPHAN HB 10 ML UNIT-DOSE CUPS PO PRN (10:13)
[2018-02-26] MEDS: BISACODYL 5 MG TABLET.DR (FP) PO PRN ×2 (10:31→21:31)
--- NOTE | 2018-02-26 17:59 | PN ---
[facility] CIWA - CIWA Score Nausea/Vomitin-No Nausea/No Vomiting Muscle Tremors: 4-Moderate,w/Arms Extend Anxiety: 2 Agitation: 2 Paroxysmal Sweats: 3 Orientation: 2-Disoriented Date<2 days Tacttile Disturbances: 0-None Auditory Disturbances: 0-None Visual Disturbances: 1-Very Mild Sensitivity Headache: 0-None Present CIWA-Ar Total Score: 14 S Progress Note (SOAP) Subjective: Constipation, Sweating, Tremors. Objective: PATIENT A & O X 2 (UNCERTAIN ABOUT CURRENT DAY / DATE). PATIENT OBSERVED AMBULATING ON UNIT. IN NO ACUTE DISTRESS. 02/26/18 17:56 Vital Signs Temperature 99.0 F 02/26/18 17:52 Pulse Rate 107 H 02/26/18 17:52 Respiratory Rate 18 02/26/18 17:52 Blood Pressure 125/82 02/26/18 17:52 O2 Sat by Pulse Oximetry (%) Laboratory Tests 02/24/18 02/25/18 02/25/18 16:40 05:57 07:00 WBC RBC Hgb Hct MCV MCH MCHC RDW Plt Count MPV Sodium Potassium Chloride Carbon Dioxide Anion Gap BUN Creatinine Creat Clearance w eGFR POC Glucometer 142 212 Random Glucose Calcium Total Bilirubin AST ALT Alkaline Phosphatase Total Protein Albumin RPR Titer HIV 1&2 Antibody Screen Negative HIV P24 Antigen Negative 02/25/18 02/25/18 02/25/18 07:00 07:00 07:00 WBC 6.3 RBC 3.93 L Hgb 13.3 Hct 38.4 MCV 97.6 H MCH 33.8 H MCHC 34.7 RDW 14.5 Plt Count 224 MPV 9.7 D Sodium 143 Potassium 3.8 Chloride 105 Carbon Dioxide 31 Anion Gap 7 L BUN 12 Creatinine 0.7 Creat Clearance w eGFR > 60 POC Glucometer Random Glucose 173 H Calcium 8.3 L Total Bilirubin 0.3 AST 26 ALT 44 Alkaline Phosphatase 68 Total Protein 5.9 L Albumin 3.3 L RPR Titer Nonreactive HIV 1&2 Antibody Screen HIV P24 Antigen 02/25/18 02/26/18 02/26/18 15:57 06:05 16:22 WBC RBC Hgb Hct MCV MCH MCHC RDW Plt Count MPV Sodium Potassium Chloride Carbon Dioxide Anion Gap BUN Creatinine Creat Clearance w eGFR POC Glucometer 194 332 429 Random Glucose Calcium Total Bilirubin AST ALT Alkaline Phosphatase Total Protein Albumin RPR Titer HIV 1&2 Antibody Screen HIV P24 Antigen LABS NOTED. Assessment: 02/26/18 17:57 WITHDRAWAL SYMPTOMS. Plan: CONTINUE DETOX. INCREASE DAILY PO FLUID INTAKE. PRN MOM FOR CONSTIPATION.
[2018-02-26] MEDS: QUEtiapine FUMARATE 300 MG TABLET PO SCH (22:08)
[2018-02-26] MEDS: chlordiazePOXIDE 5 MG CAPSULE PO SCH (22:08)
[2018-02-26] MEDS: rOPINIRole HCL 1 MG TABLET (FP) PO SCH (22:08)
[2018-02-26] MEDS: THIAMINE HCL 100 MG TABLET (FP) PO SCH (22:12)
[2018-02-27] MEDS: chlordiazePOXIDE 5 MG CAPSULE PO SCH ×3 (05:30→16:51)
[2018-02-27] MEDS: GABAPENTIN 300 MG CAPSULE (FP) PO SCH ×3 (05:30→22:01)
[2018-02-27] MEDS: metFORMIN HCL 500 MG TABLET (FP) PO SCH ×2 (06:33→16:51)
[2018-02-27] MEDS: INSULIN SLIDING SCALE (NOVOLOG) 1 VIAL SQ SCH ×2 (06:33→16:52)
[2018-02-27] MEDS: PRENATAL VITAMINS W/ FOLIC ACID TABLET (FP) PO SCH (10:25)
[2018-02-27] MEDS: NICOTINE 21 MG/24 HOURS TOPICAL PATCH TD SCH (10:25)
[2018-02-27] MEDS: MAGNESIUM HYDROX 2400MG/30ML ORAL SUSPENSION 30 ML CUP PO PRN (10:48)
[2018-02-27] MEDS: ARTIFICIAL TEARS (POLYVINYL ALCOHOL) OPTH DROPS OU SCH ×4 (11:34→22:02)
--- NOTE | 2018-02-27 12:32 | PN ---
Psychiatric Progress Note Vital Signs: Vital Signs Period Temp Pulse Resp BP Sys/Calle Pulse Ox Last 24 Hr 96.7 F-99.0 F 71-110 18-20 104-127/62-82 Date of Session: 02/27/18 Chief Complaint:: "i need my seroquel dose higher." HPI: Patient admitted to for alcohol and cocaine dependence. ROS: Diabetes, R index finger sx for osteomyelitis, arthritis Current Medications: Active Medications Generic Name Dose Route Start Last Admin Trade Name Freq PRN Reason Stop Dose Admin Acetaminophen 650 mg 02/24/18 17:28 Tylenol - PO Q4H PRN FEVER Al Hydroxide/Mg Hydroxide 30 ml 02/24/18 17:28 Mylanta Oral Suspension - PO Q6H PRN DYSPEPSIA Artificial Tears 1 drop 02/25/18 18:00 02/27/18 11:34 Artificial Tears OU 1 drop QID WILD Administration Bisacodyl 10 mg 02/26/18 20:02 02/26/18 21:31 Dulcolax - PO 10 mg BIDPC PRN Administration CONSTIPATION Chlordiazepoxide HCl 15 mg 02/26/18 23:00 02/27/18 10:25 Librium - PO 02/27/18 17:01 15 mg [id number] WILD Administration Chlordiazepoxide HCl 25 mg 02/24/18 17:28 Librium - PO 02/27/18 17:27 Q4H PRN WITHDRAWAL(CONT SUBST) Chlordiazepoxide HCl 10 mg 02/27/18 23:00 Librium - PO 02/28/18 17:01 [id number] WILD Eucalyptus/Menthol/Phenol/Sorbitol 1 each 02/24/18 17:28 Cepastat Lozenge - MM Q4H PRN SORE THROAT Gabapentin 600 mg 02/24/18 22:00 02/27/18 05:30 Neurontin - PO 600 mg TID WILD Administration Guaifenesin 10 ml 02/24/18 17:28 02/26/18 10:13 Robitussin Dm - PO 10 ml Q6H PRN Administration COUGH Hydroxyzine Pamoate 25 mg 02/24/18 17:28 Vistaril - PO Q4H PRN AGITATION Ibuprofen 400 mg 02/24/18 17:28 Motrin - PO Q6H PRN PAIN LEVEL 4-6 Insulin Aspart 1 vial 02/25/18 07:00 02/27/18 06:33 Novolog Vial Sliding Scale - SQ 4 units BIDAC WILD Administration Protocol Loperamide HCl 4 mg 02/24/18 17:28 Imodium - PO Q6H PRN DIARRHEA Magnesium Citrate 300 ml 02/24/18 17:28 Citroma - PO Q48H PRN CONSTIPATION Magnesium Hydroxide 30 ml 02/24/18 17:28 02/27/18 10:48 Milk Of Magnesia - PO 30 ml DAILY PRN Administration CONSTIPATION Melatonin 5 mg 02/24/18 22:00 Melatonin PO HS PRN INSOMNIA Metformin HCl 1,000 mg 02/25/18 07:00 02/27/18 06:33 Glucophage - PO 1,000 mg BID@0700,1630 WILD Administration Nicotine 21 mg 02/25/18 10:00 02/27/18 10:25 Nicoderm Patch - TD Not Given DAILY WILD Nicotine Polacrilex 4 mg 02/24/18 17:28 Nicorette Gum - BC Q2H PRN NICOTINE REPLACEMENT RX Multivit/Folic Acid/Iron 1 tab 02/25/18 10:00 02/27/18 10:25 Vitamins ([facility]) - PO 1 tab DAILY WILD Administration Pseudoephedrine/Triprolidine 1 combo 02/24/18 17:28 Actifed - PO TID PRN NASAL CONGESTION Quetiapine Fumarate 300 mg 02/25/18 22:00 02/26/18 22:08 Seroquel - PO 300 mg HS WILD Administration Ropinirole HCl 1 mg 02/25/18 22:00 02/26/18 22:08 Requip - PO 1 mg HS WILD Administration Thiamine HCl 100 mg 02/24/18 22:00 02/26/18 22:12 Vitamin B1 - PO 100 mg HS WILD Administration Medication(s) Change(s): Yes. Will increase Seroquel 300mg to 400mg HS. Current Side Effect: No Lab tests ordered: No Lab tests reviewed: Yes Provider note:: Chart reviewed. Patient seen by copy writer for initial psychiatric consultation. Patient presents as alert and oriented X3. Mr. Abreu denies feeling sedated or lethargic in the morning. Patient has been able to tolerate seroquel 300mg HS. He is prescribed seroquel 400mg HS by his outpatient psychiatrist but medication was lowered after patient received a one time dose of seroquel 400mg on the night of admission and presented lethargic and fatigue the following morning. Will increase seroquel from 300mg to 400mg HS. Verbal consent given. Total face to face time:: 25 Mental Status Exam - Mental Status Exam Alert and Oriented to: Time, Place, Person Cognitive Function: Good Patient Appearance: Well Groomed Mood: Anxious, Euthymic Affect: Mood Congruent Patient Behavior: Appropriate Speech Pattern: Clear Voice Loudness: Normal Thought Process: Intact, Goal Oriented Thought Disorder: Not Present Hallucinations: Denies Suicidal Ideation: Denies Homicidal Ideation: Denies Insight/Judgement: Poor Sleep: Fair Appetite: Fair Muscle strength/Tone: Normal Gait/Station: Normal Psychiatric Treatment Plan - Problem List (1) Alcohol dependence with uncomplicated withdrawal Current Visit: Yes (2) Cocaine dependence Current Visit: Yes Qualifiers: Substance use status: uncomplicated Qualified Code(s): F14.20 - Cocaine dependence, uncomplicated (3) Nicotine dependence Current Visit: Yes Qualifiers: Nicotine product type: cigarettes (4) Substance induced mood disorder Current Visit: Yes (5) Substance-induced sleep disorder Current Visit: Yes
[2018-02-27] MEDS: BISACODYL 5 MG TABLET.DR (FP) PO PRN (12:59)
--- NOTE | 2018-02-27 14:50 | PN ---
S Progress Note (SOAP) Subjective: Nausea, Interrupted Sleep, Constipation, Body Aches, Anxious, Tremors. Objective: PATIENT A & O X 3, OBSERVED AMBULATING ON UNIT. IN NO ACUTE DISTRESS. 02/27/18 14:50 Vital Signs Temperature 97.8 F 02/27/18 13:50 Pulse Rate 97 H 02/27/18 13:50 Respiratory Rate 16 02/27/18 13:50 Blood Pressure 122/71 02/27/18 13:50 O2 Sat by Pulse Oximetry (%) Laboratory Tests 02/24/18 02/25/18 02/25/18 16:40 05:57 07:00 WBC RBC Hgb Hct MCV MCH MCHC RDW Plt Count MPV Sodium Potassium Chloride Carbon Dioxide Anion Gap BUN Creatinine Creat Clearance w eGFR POC Glucometer 142 212 Random Glucose Calcium Total Bilirubin AST ALT Alkaline Phosphatase Total Protein Albumin RPR Titer HIV 1&2 Antibody Screen Negative HIV P24 Antigen Negative 02/25/18 02/25/18 02/25/18 07:00 07:00 07:00 WBC 6.3 RBC 3.93 L Hgb 13.3 Hct 38.4 MCV 97.6 H MCH 33.8 H MCHC 34.7 RDW 14.5 Plt Count 224 MPV 9.7 D Sodium 143 Potassium 3.8 Chloride 105 Carbon Dioxide 31 Anion Gap 7 L BUN 12 Creatinine 0.7 Creat Clearance w eGFR > 60 POC Glucometer Random Glucose 173 H Calcium 8.3 L Total Bilirubin 0.3 AST 26 ALT 44 Alkaline Phosphatase 68 Total Protein 5.9 L Albumin 3.3 L RPR Titer Nonreactive HIV 1&2 Antibody Screen HIV P24 Antigen 02/25/18 02/26/18 02/26/18 15:57 06:05 16:22 WBC RBC Hgb Hct MCV MCH MCHC RDW Plt Count MPV Sodium Potassium Chloride Carbon Dioxide Anion Gap BUN Creatinine Creat Clearance w eGFR POC Glucometer 194 332 429 Random Glucose Calcium Total Bilirubin AST ALT Alkaline Phosphatase Total Protein Albumin RPR Titer HIV 1&2 Antibody Screen HIV P24 Antigen 02/27/18 05:30 WBC RBC Hgb Hct MCV MCH MCHC RDW Plt Count MPV Sodium Potassium Chloride Carbon Dioxide Anion Gap BUN Creatinine Creat Clearance w eGFR POC Glucometer 248 Random Glucose Calcium Total Bilirubin AST ALT Alkaline Phosphatase Total Protein Albumin RPR Titer HIV 1&2 Antibody Screen HIV P24 Antigen LABS NOTED. Assessment: 02/27/18 14:50 WITHDRAWAL SYMPTOMS. Plan: CONTINUE DETOX. INCREASE DAILY PO FLUID INTAKE. PRN BISOCODYL FOR CONSTIPATION.
[2018-02-27] MEDS ORDERED: QUEtiapine FUMARATE 300 MG TABLET PO SCH (22:00)
[2018-02-27] MEDS: THIAMINE HCL 100 MG TABLET (FP) PO SCH (22:01)
[2018-02-27] MEDS: QUEtiapine FUMARATE 400 MG TABLET PO SCH (22:01)
[2018-02-27] MEDS ORDERED: chlordiazePOXIDE HCL 10 MG CAPSULE PO SCH (23:00)
--- NOTE | 2018-02-27 23:03 | HP ---
[facility] Re[facility] Assess/Revision - Admission History Admitted to Rehab from: [facility] - Vital signs Vital Signs: Vital Signs Period Temp Pulse Resp BP Sys/Calle Pulse Ox Last 24 Hr 97 F-98.4 F 73-110 16-20 104-122/61-71 Laboratory Last Values WBC 6.3 K/mm3 (4.0-10.0) 02/25/18 07:00 RBC 3.93 M/mm3 (4.00-5.60) L 02/25/18 07:00 Hgb 13.3 GM/dL (11.7-16.9) 02/25/18 07:00 Hct 38.4 % (35.4-49) 02/25/18 07:00 MCV 97.6 fl (80-96) H 02/25/18 07:00 MCH 33.8 pg (25.7-33.7) H 02/25/18 07:00 MCHC 34.7 g/dl (32.0-35.9) 02/25/18 07:00 RDW 14.5 % (11.9-15.9) 02/25/18 07:00 Plt Count 224 K/MM3 (134-434) 02/25/18 07:00 MPV 9.7 fl (7.5-11.1) D 02/25/18 07:00 Sodium 143 mmol/L (136-145) 02/25/18 07:00 Potassium 3.8 mmol/L (3.5-5.1) 02/25/18 07:00 Chloride 105 mmol/L (98-107) 02/25/18 07:00 Carbon Dioxide 31 mmol/L (21-32) 02/25/18 07:00 Anion Gap 7 MMOL/L (8-16) L 02/25/18 07:00 BUN 12 mg/dL (7-18) 02/25/18 07:00 Creatinine 0.7 mg/dL (0.55-1.3) 02/25/18 07:00 Creat Clearance w eGFR > 60 (>60) 02/25/18 07:00 POC Glucometer 248 UNITS (80-120) 02/27/18 05:30 Random Glucose 173 mg/dL (74-106) H 02/25/18 07:00 Calcium 8.3 mg/dL (8.5-10.1) L 02/25/18 07:00 Total Bilirubin 0.3 mg/dL (0.2-1) 02/25/18 07:00 AST 26 U/L (15-37) 02/25/18 07:00 ALT 44 U/L (13-61) 02/25/18 07:00 Alkaline Phosphatase 68 U/L (45-117) 02/25/18 07:00 Total Protein 5.9 g/dl (6.4-8.2) L 02/25/18 07:00 Albumin 3.3 g/dl (3.4-5.0) L 02/25/18 07:00 RPR Titer Nonreactive (NONREACTIVE) 02/25/18 07:00 HIV 1&2 Antibody Screen Negative 02/25/18 07:00 HIV P24 Antigen Negative 02/25/18 07:00 - Findings Detox History & Physical reviewed: Yes Concur with findings: Yes
[2018-02-27] MEDS: rOPINIRole HCL 1 MG TABLET (FP) PO SCH (23:24)
[2018-02-28] MEDS: GABAPENTIN 300 MG CAPSULE (FP) PO SCH ×3 (06:27→21:43)
[2018-02-28] MEDS: metFORMIN HCL 500 MG TABLET (FP) PO SCH ×2 (06:27→16:48)
[2018-02-28] MEDS: BISACODYL 5 MG TABLET.DR (FP) PO PRN ×2 (06:37→21:43)
[2018-02-28] MEDS: INSULIN SLIDING SCALE (NOVOLOG) 1 VIAL SQ SCH ×2 (07:24→17:04)
[2018-02-28] MEDS: ARTIFICIAL TEARS (POLYVINYL ALCOHOL) OPTH DROPS OU SCH ×4 (10:35→22:32)
[2018-02-28] MEDS: PRENATAL VITAMINS W/ FOLIC ACID TABLET (FP) PO SCH (10:35)
[2018-02-28] MEDS: NICOTINE 21 MG/24 HOURS TOPICAL PATCH TD SCH (10:38)
[2018-02-28] MEDS: rOPINIRole HCL 1 MG TABLET (FP) PO SCH (21:43)
[2018-02-28] MEDS: THIAMINE HCL 100 MG TABLET (FP) PO SCH (21:43)
[2018-02-28] MEDS: QUEtiapine FUMARATE 400 MG TABLET PO SCH (21:43)
[2018-03-01] MEDS: GABAPENTIN 300 MG CAPSULE (FP) PO SCH ×3 (06:17→22:03)
[2018-03-01] MEDS: metFORMIN HCL 500 MG TABLET (FP) PO SCH ×2 (06:18→16:40)
[2018-03-01] MEDS: INSULIN SLIDING SCALE (NOVOLOG) 1 VIAL SQ SCH ×2 (07:43→17:25)
--- NOTE | 2018-03-01 09:33 | PN ---
[facility] Progress Note Note: C/O BACK PAIN AND HX OF "HERNIATED DISC ON MY BACK, THREE OF THEM". 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 REPORTS HE USES CANE BUT DID NOT BRING IT WITH HIM. STATES BALANCE PROBLEMS SOMETIMES AND WANTS A CANE. PT WAS ADMITTED FROM DETOX ON 02/27/18. ALERT O X 3. IN NAD. Vital Signs 03/01/18 03/01/18 03:30 06:55 Temperature 97.3 F L Pulse Rate 100 H Respiratory 18 16 Rate Blood Pressure 99/63 NAD PLAN:CANE REQUESTED LIDOCAINE PATCH 5% APPLY DIRECTED.
[2018-03-01] MEDS: PRENATAL VITAMINS W/ FOLIC ACID TABLET (FP) PO SCH (10:15)
[2018-03-01] MEDS: NICOTINE 21 MG/24 HOURS TOPICAL PATCH TD SCH (10:15)
[2018-03-01] MEDS: ARTIFICIAL TEARS (POLYVINYL ALCOHOL) OPTH DROPS OU SCH ×4 (10:16→22:04)
[2018-03-01] MEDS: BISACODYL 5 MG TABLET.DR (FP) PO PRN ×2 (12:56→23:15)
[2018-03-01] MEDS ORDERED: INSULIN (NOVOLOG) ASPART 100 UNITS/ML 10ML VIAL SQ ONE (17:00)
--- NOTE | 2018-03-01 18:26 | HP ---
Psychiatrist Admission - Data Date of interview: 03/01/18 Admission source: Transfer from [address] [place] [address]. Identifying data: First admission to [address] for this 58 y/o male transitioning to rehabilitation care to address alcohol dependence , benzodiazepine dependence, cocaine dependence co-morbid with bipolar disorder. Patient is , a father of two, homeless, unemployed and supported on SSD benefits. Medical History: Consistent with diabetes mellitus, restless leg syndrome, arthritis and antecedent of osteomyelitis (right index finger). Patient ambulates with a cane. Psychiatric History: Onset of psychiatric disturbances : around age 28. Patient reports a history of multiple psychiatric hospitalizations in [place] but he aknowledges only one psychiatric admission to [facility] in [facility]. Diagnosed with Bipolar Disorder. Mr Abreu sees a psychiatrist for medication management (seroquel 400 mg/hs) at the [facility] in [place]. Admits to having missed his follow-up appointment last month. Patient insists that he is adherent to his medication (known to be on seroquel for several years). No reported history of suicide attempts. Physical/Sexual Abuse/Trauma History: Patient denies. Additional Comment: Profile of substance abuse discussed with the patient. Details in current [facility] report as follows : Smoking history: Current every day smoker. Have you smoked in the past 12 months: Yes. Aproximately how many cigarettes per day: 12. Cigars Per Day: 0. Hx Chewing Tobacco Use: No. Initiated information on smoking cessation: Yes. 'Breaking Loose' booklet given : 02/24/18. - Substance & Tx. History. Hx Alcohol Use: Yes. Hx Substance Use : Yes. Substance Use Type: Alcohol, Tranquilizers. Hx Substance Use Treatment : Yes ( [facility]). - Substances Abused. Alcohol. Route: Oral. Frequency: Daily. Amount used: 3 pints vodka. Age of first use: 14. Date of Last Use: . Cocaine. Route: Smoking. Frequency: 3-6 times per week. Amount used: $20. Age of first use: 38. Date of Last Use: 02/23/18. Alprazolam ( Xanax). Route: Oral. Frequency: 1-2 times per week. Amount used: 2-3mg. Age of first use: 38. Date of Last Use: 02/22/18. Urine Drug Screen Results: NIKUNJ- Cocaine, BAR-Barbiturates. Noted. Vital Signs: Vital Signs - 24 hr 03/01/18 03/01/18 03/01/18 00:30 03:30 06:55 Temperature 97.3 F L Pulse Rate 100 H Respiratory 18 18 16 Rate Blood Pressure 99/63 Allergies/Adverse Reactions: Allergies Allergy/AdvReac Type Severity Reaction Status Date / Time No Known Allergies Allergy Verified 02/24/18 16:14 - Substance Abuse/Tx History Hx Alcohol Use: Yes Hx Substance Use: Yes (alcohol, nicotine, cocaine) Substance Use Type: Alcohol, Cocaine, Tranquilizers Hx Substance Use Treatment: Yes Mental Status Exam - Mental Status Exam Alert and Oriented to: Time, Place, Person Cognitive Function: Good Patient Appearance: Well Groomed (moving around with a cane ) Mood: Apprehensive Affect: Mood Congruent Patient Behavior: Appropriate, Cooperative (well-related, friendly with life underwriter) Speech Pattern: Clear Voice Loudness: Normal Thought Process: Intact, Goal Oriented Thought Disorder: Not Present Hallucinations: Denies Suicidal Ideation: Denies Homicidal Ideation: Denies Insight/Judgement: Fair Sleep: Fair (on seroquel at bedtime) Appetite: Good Muscle strength/Tone: Normal Gait/Station: Other (ambulates with a cane) Psychiatric Findings - Problem List ([place] 1, 2,3) (1) Alcohol dependence with uncomplicated withdrawal Current Visit: Yes Status: Acute (2) Cocaine dependence Current Visit: Yes Status: Chronic Qualifiers: Substance use status: uncomplicated Qualified Code(s): F14.20 - Cocaine dependence, uncomplicated (3) Nicotine dependence Current Visit: Yes Status: Chronic Qualifiers: Nicotine product type: cigarettes (4) Substance induced mood disorder Current Visit: Yes Status: Chronic (5) Substance-induced sleep disorder Current Visit: Yes Status: Chronic (6) History of bipolar disorder Current Visit: Yes Status: Chronic Comment: On seroquel. Current recipient of OPD care. (7) Use of cane as ambulatory aid Current Visit: Yes Status: Chronic - Initial Treatment Plan Initial Treatment Plan: Records reviewed. Psychoeducation. Sleep hygiene. Psychotherapy (group, individual,supportive). Motivational rounds. AA meetings. Medication-assisted treatment for ETOH relapse prevention (MAT), including naltrexone, acamprosate will be discussed with patient in the course of this hospital course. Seroquel is resumed at the dose of 300 mg po hs (reduced in view of hypotension). Titration to 400 mg/hs will follow with amelioration of BP. Discussed with patient. Side effects/benefits revisited. Informed consent ( verbal) granted to . Falls precautions. Observation.
[2018-03-01] MEDS ORDERED: QUEtiapine FUMARATE 100 MG TABLET (FP) ONE (20:43)
[2018-03-01] MEDS: QUEtiapine FUMARATE 300 MG TABLET PO SCH (22:04)
[2018-03-01] MEDS: THIAMINE HCL 100 MG TABLET (FP) PO SCH (22:04)
[2018-03-01] MEDS: rOPINIRole HCL 1 MG TABLET (FP) PO SCH (22:06)
[2018-03-02] MEDS: metFORMIN HCL 500 MG TABLET (FP) PO SCH ×2 (06:28→16:45)
[2018-03-02] MEDS: GABAPENTIN 300 MG CAPSULE (FP) PO SCH ×3 (06:29→21:51)
[2018-03-02] MEDS: INSULIN SLIDING SCALE (NOVOLOG) 1 VIAL SQ SCH ×2 (07:44→16:46)
[2018-03-02] MEDS ORDERED: COLLOIDAL OATMEAL 1 BAR EACH TP PRN (09:51)
--- NOTE | 2018-03-02 09:57 | PN ---
[facility] Progress Note Note: C/O BODY ITCH AND RASH. Vital Signs 03/02/18 03/02/18 03:30 07:11 Temperature 98.4 F Pulse Rate 95 H Respiratory 18 16 Rate Blood Pressure 105/71 SKIN; SLIGHT REDDENED AREAS OF ABRASION ON RIGHT FOREARM DUE TO SCRATCHING. PLAN:HYDROCORTISONE CREAM 1% APPLY DIRECTED AVEENO SOAP DAILY FOR BATH EUCERIN CREAM DAILY AFTER SHOWER.
[2018-03-02] MEDS: guaiFENesin/D-METHORPHAN HB 10 ML UNIT-DOSE CUPS PO PRN (10:32)
[2018-03-02] MEDS: LIDOCAINE 5% TOPICAL PATCH TP SCH (10:32)
[2018-03-02] MEDS: PRENATAL VITAMINS W/ FOLIC ACID TABLET (FP) PO SCH (10:33)
[2018-03-02] MEDS: ARTIFICIAL TEARS (POLYVINYL ALCOHOL) OPTH DROPS OU SCH ×4 (10:33→21:51)
[2018-03-02] MEDS: NICOTINE 21 MG/24 HOURS TOPICAL PATCH TD SCH (10:33)
[2018-03-02] MEDS: HYDROCORTISONE 1% TOPICAL CREAM 30 GM TUBE TP SCH ×2 (10:35→21:53)
[2018-03-02] MEDS: BISACODYL 5 MG TABLET.DR (FP) PO PRN ×2 (10:36→21:51)
[2018-03-02] MEDS: MINERAL OIL/PETROLAT/WATER TOPICAL CREAM 113 GM JAR TP SCH (14:03)
[2018-03-02] MEDS: IBUPROFEN 400 MG TABLET (FP) PO PRN (18:57)
[2018-03-02] MEDS: QUEtiapine FUMARATE 300 MG TABLET PO SCH (21:51)
[2018-03-02] MEDS: THIAMINE HCL 100 MG TABLET (FP) PO SCH (21:51)
[2018-03-02] MEDS: rOPINIRole HCL 1 MG TABLET (FP) PO SCH (21:52)
[2018-03-02] MEDS: LIDOCAINE PATCH REMOVAL MC SCH (21:53)
[2018-03-03] MEDS: metFORMIN HCL 500 MG TABLET (FP) PO SCH ×2 (06:12→16:47)
[2018-03-03] MEDS: GABAPENTIN 300 MG CAPSULE (FP) PO SCH ×3 (06:12→21:46)
[2018-03-03] MEDS ORDERED: INSULIN (NOVOLOG) ASPART 100 UNITS/ML 10ML VIAL ONE ×2 (06:16→16:49)
[2018-03-03] MEDS: INSULIN SLIDING SCALE (NOVOLOG) 1 VIAL SQ SCH ×2 (07:05→16:50)
--- NOTE | 2018-03-03 10:26 | PN ---
[facility] Progress Note Note: Patient requests that his Seroquel dosage be increased to 400 mg po HS which is part of his home medications. he was seen by Dr Mckinley on 03/01/18 for admission and a reduced dose of 300 mg was ordered due to hypotension. As pr Dr Mckinley, Seroquel dosage to be titrated back to 400 mg once amelioration of BP. With amelioration of patient's BP numbers, will increase Seroquel back to 400 mg po HS
[2018-03-03] MEDS: PRENATAL VITAMINS W/ FOLIC ACID TABLET (FP) PO SCH (10:30)
[2018-03-03] MEDS: BISACODYL 5 MG TABLET.DR (FP) PO PRN (10:30)
[2018-03-03] MEDS: MINERAL OIL/PETROLAT/WATER TOPICAL CREAM 113 GM JAR TP SCH (10:31)
[2018-03-03] MEDS: ARTIFICIAL TEARS (POLYVINYL ALCOHOL) OPTH DROPS OU SCH ×4 (10:31→21:47)
[2018-03-03] MEDS: HYDROCORTISONE 1% TOPICAL CREAM 30 GM TUBE TP SCH ×2 (10:32→21:48)
[2018-03-03] MEDS: NICOTINE 21 MG/24 HOURS TOPICAL PATCH TD SCH (10:32)
[2018-03-03] MEDS: LIDOCAINE 5% TOPICAL PATCH TP SCH (10:32)
[2018-03-03] MEDS: QUEtiapine FUMARATE 400 MG TABLET PO SCH (21:46)
[2018-03-03] MEDS: THIAMINE HCL 100 MG TABLET (FP) PO SCH (21:47)
[2018-03-03] MEDS: LIDOCAINE PATCH REMOVAL MC SCH (21:48)
[2018-03-03] MEDS: rOPINIRole HCL 1 MG TABLET (FP) PO SCH (21:50)
[2018-03-04] MEDS: GABAPENTIN 300 MG CAPSULE (FP) PO SCH ×3 (06:09→21:35)
[2018-03-04] MEDS: metFORMIN HCL 500 MG TABLET (FP) PO SCH ×2 (06:09→16:43)
[2018-03-04] MEDS ORDERED: INSULIN (NOVOLOG) ASPART 100 UNITS/ML 10ML VIAL ONE (06:12)
[2018-03-04] MEDS: INSULIN SLIDING SCALE (NOVOLOG) 1 VIAL SQ SCH ×2 (06:45→16:45)
[2018-03-04] MEDS: MINERAL OIL/PETROLAT/WATER TOPICAL CREAM 113 GM JAR TP SCH (10:45)
[2018-03-04] MEDS: ARTIFICIAL TEARS (POLYVINYL ALCOHOL) OPTH DROPS OU SCH ×4 (10:45→21:35)
[2018-03-04] MEDS: LIDOCAINE 5% TOPICAL PATCH TP SCH (10:46)
[2018-03-04] MEDS: NICOTINE 21 MG/24 HOURS TOPICAL PATCH TD SCH (10:46)
[2018-03-04] MEDS: HYDROCORTISONE 1% TOPICAL CREAM 30 GM TUBE TP SCH ×2 (10:46→21:38)
[2018-03-04] MEDS: PRENATAL VITAMINS W/ FOLIC ACID TABLET (FP) PO SCH (10:46)
[2018-03-04] MEDS: BISACODYL 5 MG TABLET.DR (FP) PO PRN ×2 (10:47→21:36)
[2018-03-04] MEDS: QUEtiapine FUMARATE 400 MG TABLET PO SCH (21:35)
[2018-03-04] MEDS: THIAMINE HCL 100 MG TABLET (FP) PO SCH (21:36)
[2018-03-04] MEDS: rOPINIRole HCL 1 MG TABLET (FP) PO SCH (21:38)
[2018-03-04] MEDS: LIDOCAINE PATCH REMOVAL MC SCH (21:38)
[2018-03-05] MEDS: metFORMIN HCL 500 MG TABLET (FP) PO SCH ×2 (06:16→17:06)
[2018-03-05] MEDS: GABAPENTIN 300 MG CAPSULE (FP) PO SCH ×3 (06:16→21:14)
[2018-03-05] MEDS ORDERED: INSULIN (NOVOLOG) ASPART 100 UNITS/ML 10ML VIAL ONE ×2 (07:10→17:05)
[2018-03-05] MEDS: INSULIN SLIDING SCALE (NOVOLOG) 1 VIAL SQ SCH ×2 (07:11→17:07)
[2018-03-05] MEDS: LIDOCAINE 5% TOPICAL PATCH TP SCH (10:34)
[2018-03-05] MEDS: PRENATAL VITAMINS W/ FOLIC ACID TABLET (FP) PO SCH (10:34)
[2018-03-05] MEDS: MINERAL OIL/PETROLAT/WATER TOPICAL CREAM 113 GM JAR TP SCH (10:37)
[2018-03-05] MEDS: BISACODYL 5 MG TABLET.DR (FP) PO PRN (10:38)
[2018-03-05] MEDS: ARTIFICIAL TEARS (POLYVINYL ALCOHOL) OPTH DROPS OU SCH ×3 (10:39→22:38)
[2018-03-05] MEDS: NICOTINE 21 MG/24 HOURS TOPICAL PATCH TD SCH (10:39)
[2018-03-05] MEDS: MAGNESIUM HYDROX 2400MG/30ML ORAL SUSPENSION 30 ML CUP PO PRN (10:39)
[2018-03-05] MEDS: HYDROCORTISONE 1% TOPICAL CREAM 30 GM TUBE TP SCH ×2 (10:39→22:39)
[2018-03-05] MEDS: THIAMINE HCL 100 MG TABLET (FP) PO SCH (21:14)
[2018-03-05] MEDS: QUEtiapine FUMARATE 400 MG TABLET PO SCH (21:14)
[2018-03-05] MEDS: MELATONIN 5 MG TABLETS PO PRN (21:21)
[2018-03-05] MEDS: rOPINIRole HCL 1 MG TABLET (FP) PO SCH (22:39)
[2018-03-05] MEDS: LIDOCAINE PATCH REMOVAL MC SCH (22:40)
[2018-03-06] MEDS: metFORMIN HCL 500 MG TABLET (FP) PO SCH ×2 (06:29→16:45)
[2018-03-06] MEDS: GABAPENTIN 300 MG CAPSULE (FP) PO SCH ×3 (06:29→21:40)
[2018-03-06] MEDS: INSULIN SLIDING SCALE (NOVOLOG) 1 VIAL SQ SCH ×2 (06:31→16:47)
[2018-03-06] MEDS ORDERED: INSULIN (NOVOLOG) ASPART 100 UNITS/ML 10ML VIAL ONE ×2 (07:59→20:50)
[2018-03-06] MEDS: ARTIFICIAL TEARS (POLYVINYL ALCOHOL) OPTH DROPS OU SCH ×4 (10:37→21:41)
[2018-03-06] MEDS: MINERAL OIL/PETROLAT/WATER TOPICAL CREAM 113 GM JAR TP SCH (10:37)
[2018-03-06] MEDS: BISACODYL 5 MG TABLET.DR (FP) PO SCH (10:37)
[2018-03-06] MEDS: PRENATAL VITAMINS W/ FOLIC ACID TABLET (FP) PO SCH (10:37)
[2018-03-06] MEDS: HYDROCORTISONE 1% TOPICAL CREAM 30 GM TUBE TP SCH ×2 (10:38→21:41)
[2018-03-06] MEDS: LIDOCAINE 5% TOPICAL PATCH TP SCH (10:38)
[2018-03-06] MEDS: NICOTINE 21 MG/24 HOURS TOPICAL PATCH TD SCH (10:38)
[2018-03-06] MEDS: MELATONIN 5 MG TABLETS PO PRN (21:40)
[2018-03-06] MEDS: QUEtiapine FUMARATE 400 MG TABLET PO SCH (21:40)
[2018-03-06] MEDS: LIDOCAINE PATCH REMOVAL MC SCH (21:41)
[2018-03-06] MEDS: rOPINIRole HCL 1 MG TABLET (FP) PO SCH (21:42)
[2018-03-06] MEDS: THIAMINE HCL 100 MG TABLET (FP) PO SCH (21:42)
[2018-03-07] MEDS: INSULIN SLIDING SCALE (NOVOLOG) 1 VIAL SQ SCH ×2 (06:15→16:48)
[2018-03-07] MEDS: GABAPENTIN 300 MG CAPSULE (FP) PO SCH ×3 (06:16→21:38)
[2018-03-07] MEDS: metFORMIN HCL 500 MG TABLET (FP) PO SCH ×2 (06:16→16:45)
[2018-03-07 07:25] VITALS: TEMP 97.7
[2018-03-07] MEDS: MINERAL OIL/PETROLAT/WATER TOPICAL CREAM 113 GM JAR TP SCH (10:18)
[2018-03-07] MEDS: PRENATAL VITAMINS W/ FOLIC ACID TABLET (FP) PO SCH (10:18)
[2018-03-07] MEDS: HYDROCORTISONE 1% TOPICAL CREAM 30 GM TUBE TP SCH ×2 (10:18→21:39)
[2018-03-07] MEDS: ARTIFICIAL TEARS (POLYVINYL ALCOHOL) OPTH DROPS OU SCH ×4 (10:18→21:37)
[2018-03-07] MEDS: NICOTINE 21 MG/24 HOURS TOPICAL PATCH TD SCH (10:19)
[2018-03-07] MEDS: LIDOCAINE 5% TOPICAL PATCH TP SCH (10:19)
[2018-03-07] MEDS: BISACODYL 5 MG TABLET.DR (FP) PO PRN (14:58)
[2018-03-07] MEDS: MAGNESIUM HYDROX 2400MG/30ML ORAL SUSPENSION 30 ML CUP PO PRN (14:59)
[2018-03-07] MEDS: THIAMINE HCL 100 MG TABLET (FP) PO SCH (21:38)
[2018-03-07] MEDS: QUEtiapine FUMARATE 400 MG TABLET PO SCH (21:38)
[2018-03-07] MEDS: rOPINIRole HCL 1 MG TABLET (FP) PO SCH (21:39)
[2018-03-07] MEDS: LIDOCAINE PATCH REMOVAL MC SCH (21:39)
[2018-03-07] MEDS: IBUPROFEN 400 MG TABLET (FP) PO PRN (21:40)
[2018-03-07] MEDS: MELATONIN 5 MG TABLETS PO PRN (21:41)
[2018-03-07] MEDS ORDERED: POLYETHYLENE GLYCOL 3350 119 GM BTL PO SCH (22:00)
[2018-03-08] MEDS: metFORMIN HCL 500 MG TABLET (FP) PO SCH (06:07)
[2018-03-08] MEDS: GABAPENTIN 300 MG CAPSULE (FP) PO SCH (06:07)
[2018-03-08] MEDS ORDERED: INSULIN (NOVOLOG) ASPART 100 UNITS/ML 10ML VIAL ONE (06:10)
[2018-03-08 06:47] VITALS: BP 99/67; PULSE 66
[2018-03-08] MEDS: INSULIN SLIDING SCALE (NOVOLOG) 1 VIAL SQ SCH (07:42)
[2018-03-08] MEDS: LIDOCAINE 5% TOPICAL PATCH TP SCH (10:40)
[2018-03-08] MEDS: PRENATAL VITAMINS W/ FOLIC ACID TABLET (FP) PO SCH (10:42)
[2018-03-08] MEDS: MINERAL OIL/PETROLAT/WATER TOPICAL CREAM 113 GM JAR TP SCH (10:42)
[2018-03-08] MEDS: ARTIFICIAL TEARS (POLYVINYL ALCOHOL) OPTH DROPS OU SCH (10:43)
[2018-03-08] MEDS: NICOTINE 21 MG/24 HOURS TOPICAL PATCH TD SCH (10:44)
[2018-03-08] MEDS: BISACODYL 5 MG TABLET.DR (FP) PO SCH (10:44)
[2018-03-08] MEDS: HYDROCORTISONE 1% TOPICAL CREAM 30 GM TUBE TP SCH (10:44)
--- NOTE | 2018-03-08 10:52 | PN ---
[facility] Progress Note Note: PT DISCHARGING TODAY PER COUNSELOR. ALERT O X 3. REFERRED TO [facility] OPD. PT REPORTS HE HAS PRIMARY CARE AT [facility] ON [address] [place] [address]. REPORTS HE HAS A PMD DR. LOPEZ WHO LEFT AND WAS GIVEN ANOTHER DOCTOR WH HE DOES NOT REMEMBER THE NAME ON THE CARD. PT REQUESTED FOR COURTESY RX TILL HE CAN GET TO HIS DOCTOR. SPOKE TO PT'S PHARMACY WHO CONFIRMED [id number] MG PO TID. RX ELECTRONICALLY SENT TO PT'S PHARMACY FOR PICKUP. Vital Signs - 24 hr 03/08/18 03/08/18 03/08/18 00:30 03:30 06:47 Temperature 97.7 F Pulse Rate 66 Respiratory 18 18 18 Rate Blood Pressure 99/67 Laboratory Tests 02/24/18 02/25/18 02/25/18 16:40 05:57 07:00 WBC RBC Hgb Hct MCV MCH MCHC RDW Plt Count MPV Sodium Potassium Chloride Carbon Dioxide Anion Gap BUN Creatinine Creat Clearance w eGFR POC Glucometer 142 212 Random Glucose Calcium Total Bilirubin AST ALT Alkaline Phosphatase Total Protein Albumin RPR Titer HIV 1&2 Antibody Screen Negative HIV P24 Antigen Negative 02/25/18 02/25/18 02/25/18 07:00 07:00 07:00 WBC 6.3 RBC 3.93 L Hgb 13.3 Hct 38.4 MCV 97.6 H MCH 33.8 H MCHC 34.7 RDW 14.5 Plt Count 224 MPV 9.7 D Sodium 143 Potassium 3.8 Chloride 105 Carbon Dioxide 31 Anion Gap 7 L BUN 12 Creatinine 0.7 Creat Clearance w eGFR > 60 POC Glucometer Random Glucose 173 H Calcium 8.3 L Total Bilirubin 0.3 AST 26 ALT 44 Alkaline Phosphatase 68 Total Protein 5.9 L Albumin 3.3 L RPR Titer Nonreactive HIV 1&2 Antibody Screen HIV P24 Antigen 02/25/18 02/26/18 02/26/18 15:57 06:05 16:22 WBC RBC Hgb Hct MCV MCH MCHC RDW Plt Count MPV Sodium Potassium Chloride Carbon Dioxide Anion Gap BUN Creatinine Creat Clearance w eGFR POC Glucometer 194 332 429 Random Glucose Calcium Total Bilirubin AST ALT Alkaline Phosphatase Total Protein Albumin RPR Titer HIV 1&2 Antibody Screen HIV P24 Antigen 02/27/18 02/27/18 02/28/18 05:30 16:37 06:26 WBC RBC Hgb Hct MCV MCH MCHC RDW Plt Count MPV Sodium Potassium Chloride Carbon Dioxide Anion Gap BUN Creatinine Creat Clearance w eGFR POC Glucometer 248 456 308 Random Glucose Calcium Total Bilirubin AST ALT Alkaline Phosphatase Total Protein Albumin RPR Titer HIV 1&2 Antibody Screen HIV P24 Antigen 02/28/18 03/01/18 03/01/18 16:47 05:58 16:40 WBC RBC Hgb Hct MCV MCH MCHC RDW Plt Count MPV Sodium Potassium Chloride Carbon Dioxide Anion Gap BUN Creatinine Creat Clearance w eGFR POC Glucometer 367 312 428 Random Glucose Calcium Total Bilirubin AST ALT Alkaline Phosphatase Total Protein Albumin RPR Titer HIV 1&2 Antibody Screen HIV P24 Antigen 03/02/18 03/02/18 03/03/18 06:26 16:42 06:11 WBC RBC Hgb Hct MCV MCH MCHC RDW Plt Count MPV Sodium Potassium Chloride Carbon Dioxide Anion Gap BUN Creatinine Creat Clearance w eGFR POC Glucometer 218 296 185 Random Glucose Calcium Total Bilirubin AST ALT Alkaline Phosphatase Total Protein Albumin RPR Titer HIV 1&2 Antibody Screen HIV P24 Antigen 03/03/18 03/04/18 03/04/18 16:47 06:08 16:43 WBC RBC Hgb Hct MCV MCH MCHC RDW Plt Count MPV Sodium Potassium Chloride Carbon Dioxide Anion Gap BUN Creatinine Creat Clearance w eGFR POC Glucometer 236 216 225 Random Glucose Calcium Total Bilirubin AST ALT Alkaline Phosphatase Total Protein Albumin RPR Titer HIV 1&2 Antibody Screen HIV P24 Antigen 03/05/18 03/05/18 03/06/18 06:15 17:00 06:28 WBC RBC Hgb Hct MCV MCH MCHC RDW Plt Count MPV Sodium Potassium Chloride Carbon Dioxide Anion Gap BUN Creatinine Creat Clearance w eGFR POC Glucometer 198 246 230 Random Glucose Calcium Total Bilirubin AST ALT Alkaline Phosphatase Total Protein Albumin RPR Titer HIV 1&2 Antibody Screen HIV P24 Antigen 03/06/18 03/07/18 03/07/18 16:44 06:14 16:45 WBC RBC Hgb Hct MCV MCH MCHC RDW Plt Count MPV Sodium Potassium Chloride Carbon Dioxide Anion Gap BUN Creatinine Creat Clearance w eGFR POC Glucometer 200 159 166 Random Glucose Calcium Total Bilirubin AST ALT Alkaline Phosphatase Total Protein Albumin RPR Titer HIV 1&2 Antibody Screen HIV P24 Antigen 03/08/18 06:06 WBC RBC Hgb Hct MCV MCH MCHC RDW Plt Count MPV Sodium Potassium Chloride Carbon Dioxide Anion Gap BUN Creatinine Creat Clearance w eGFR POC Glucometer 172 Random Glucose Calcium Total Bilirubin AST ALT Alkaline Phosphatase Total Protein Albumin RPR Titer HIV 1&2 Antibody Screen HIV P24 Antigen PLAN:FOLLOW UP WITH PMD ABOVE. LAB RESULTS GIVEN TO PT TO TAKE TO HIS PCP AFTER DISCHARGE. FOLLOW UP WITH [facility] TREATMENT AFTERCARE RECOMMENDED.
== END 2018-03-08 12:10 | disposition home or self-care (01) | DRG 895 ==
LOC: YASAS 12:36 → Y3N 17:14 → Y5N 02-27 18:32
PROVIDERS: ADMIT Neuromusculoskeletal Medicine & OMM; ATTEND Psychiatry & Neurology Psychiatry
PROC: HZ2ZZZZ Detoxification Services for Substance Abuse Treatment (ICD-10-PCS; principal; 2018-02-24)
PROC: HZ42ZZZ Group Counseling for Substance Abuse Treatment, Cognitive-Behavioral (ICD-10-PCS; 2018-02-27)
DX: F10.230 Alcohol dependence with withdrawal, uncomplicated (principal); F14.20 Cocaine dependence, uncomplicated; F19.282 Other psychoactive substance dependence with psychoactive substance-induced sleep disorder; F17.210 Nicotine dependence, cigarettes, uncomplicated; F32.89 Other specified depressive episodes; F19.24 Other psychoactive substance dependence with psychoactive substance-induced mood disorder; G89.4 Chronic pain syndrome; R21 Rash and other nonspecific skin eruption; E11.9 Type 2 diabetes mellitus without complications; G25.81 Restless legs syndrome; R26.2 Difficulty in walking, not elsewhere classified; Z99.89 Dependence on other enabling machines and devices
CPT/HCPCS: 36415; 80053; 82962; 85027; 86593; 87389; 93005; 93010

== ENCOUNTER 2018-06-17 10:34 | Inpatient (IN) | payer OTHER ==
[2018-06-17 11:50] VITALS: BMI 23.6
--- NOTE | 2018-06-17 13:46 | HP ---
CIWA Score Nausea/Vomitin-Int. Nausea w/Dry Heave Muscle Tremors: 3 Anxiety: 3 Agitation: 0-Normal Activity Paroxysmal Sweats: 2 Orientation: 1-Uncertain about Date Tacttile Disturbances: 2-Mild Itch/Numbness/Burn Auditory Disturbances: 0-None Visual Disturbances: 0-None Headache: 2-Mild CIWA-Ar Total Score: 17 - Admission Criteria OASAS Guidelines: Admission for Medically Managed Detox: Requires at least one of the followin. CIWA greater than 12 2. Seizures within the past 24 hours 3. Delirium tremens within the past 24 hours 4. Hallucinations within the past 24 hours 5. Acute intervention needed for co occurring medical disorder 6. Acute intervention needed for co occurring psychiatric disorder 7. Severe withdrawal that cannot be handled at a lower level of care (continued vomiting, continued diarrhea, abnormal vital signs) requiring intravenous medication and/or fluids 8. Patient presents the following: CIWA greater than 12 Admission Criteria Met: Admission criteria met Admission ROS S - [facility] Chief Complaint: withdrawal symptoms Allergies/Adverse Reactions: Allergies Allergy/AdvReac Type Severity Reaction Status Date / Time No Known Allergies Allergy Verified 02/24/18 16:14 History of Present Illness: Patient is a 58 yo male, homeless, with hx of alcohol and xanax dependence is here seeking detox d/t withdrawal symptoms. One week ago [facility] ED for Chest pain. Last detox two months ago at [facility]. Denies any significant period of sobriety. PMHX: Restless, DM II, OA. Psych: Bipolar. Denies hx of seizures. Reports ETOH blackouts with last episode yesterday Exam Limitations: No Limitations - Ebola screening Have you traveled outside of the country in the last 21 days: No (N) Have you had contact with anyone from an Ebola affected area: No Do you have a fever: No - Review of Systems Constitutional: Chills, Loss of Appetite, Changes in sleep, Unexplained wgt Loss EENT: reports: Other (chronic dry eyes) Respiratory: reports: Cough (x 3 days) Cardiac: reports: No Symptoms Reported GI: reports: Diarrhea (x 3 days), Nausea, Poor Appetite, Vomiting, Abdominal cramping : reports: No Symptoms Reported Musculoskeletal: reports: Back Pain Integumentary: reports: Lesions (under Right under arm and right LE and left LE) Neuro: reports: Headache, Tingling, Dizziness Endocrine: reports: Increased Thirst Hematology: reports: No Symptoms Reported Psychiatric: reports: Orientated x3, Anxious Other Systems: Reviewed and Negative Patient History - Patient Medical History Hx Anemia: No Hx Asthma: No Hx Chronic Obstructive Pulmonary Disease (COPD): No Hx Cancer: No Hx Cardiac Disorders: No Hx Congestive Heart Failure: No Hx Hypertension: No Hx Hypercholesterolemia: No Hx Pacemaker: No HX Cerebrovascular Accident: No Hx Seizures: No Hx Dementia: No Hx Diabetes: Yes (on Metformin ) Hx Gastrointestinal Disorders: No Hx Liver Disease: No Hx Genitourinary Disorders: No Hx Sexually Transmitted Disorders: No Hx Renal Disease (ESRD): No Hx Thyroid Disease: No Hx Human Immunodeficiency Virus (HIV): No Hx Hepatitis C: No Hx Depression: No Hx Suicide Attempt: No Hx Bipolar Disorder: Yes Hx Schizophrenia: Yes - Patient Surgical History Past Surgical History: Yes Other Surgical History: R index finger sx for osteomyelitis - PPD History Previous Implant?: No Documented Results: Negative w/proof Date: 02/27/18 PPD to be Administered?: No - Smoking Cessation Smoking history: Current every day smoker Have you smoked in the past 12 months: Yes Aproximately how many cigarettes per day: 12 Cigars Per Day: 0 Hx Chewing Tobacco Use: No Initiated information on smoking cessation: Yes 'Breaking Loose' booklet given: 06/17/18 - Substance & Tx. History Hx Alcohol Use: Yes Hx Substance Use: Yes Substance Use Type: Alcohol, Tranquilizers Hx Substance Use Treatment: Yes ([facility] April 2018) - Substances abused Alcohol Substance route: Oral Frequency: Daily Amount used: VODKA- 3 PT DAILY BEERS- 7 CAN 24OZ Age of first use: 16 Date of last use: 06/16/18 Alprazolam (Xanax) Substance route: Oral Frequency: Daily Amount used: 6MG Age of first use: 28 Date of last use: 06/15/18 Family Disease History - Family Disease History Family Disease History: Diabetes: Father, Mother (colon CA), CA: Mother, Other: Brother (d. liver disease age 43 ), Sister (1 sister with lupus , 1 sister A & W ), Son (2 sons A & W) Admission Physical Exam [facility] - Vital Signs Vital Signs: Vital Signs - 24 hr 06/17/18 06/17/18 11:47 12:35 Temperature 97.3 F L 97.3 F L Pulse Rate 95 H 95 H Respiratory 18 18 Rate Blood Pressure 131/77 131/77 - Physical General Appearance: Yes: Disheveled (malodorous), Mild Distress, Thin, Anxious HEENTM: Yes: EOMI, Hearing grossly Normal, Normal ENT Inspection, Normocephalic , Normal Voice, GEOVANI, Pharynx Normal, Tm's normal, Nasal Congestion Respiratory: Yes: Chest Non-Tender, No Respiratory Distress, No Accessory Muscle Use, Wheezing Neck: Yes: Within Normal Limits Breast: Yes: Breast Exam Deferred Cardiology: Yes: Regular Rhythm, Regular Rate Abdominal: Yes: Normal Bowel Sounds, Non Tender, Flat, Soft Genitourinary: Yes: Within Normal Limits Back: Yes: Normal Inspection Musculoskeletal: Yes: full range of Motion, Gait Steady, Pelvis Stable Extremities: Yes: Normal Capillary Refill, Normal Inspection, Normal Range of Motion Neurological: Yes: broadcast director operations II-XII NML intact, Fully Oriented, Alert (pruritic, erythematous , anular lesion with white), Motor Strength 5/5, Depressed Affect Integumentary: Yes: Normal Color, Warm, Diaphoresis, Other (pruritic erythematous, circular rash with white center on RUE, RLE, LLE) Lymphatic: Yes: Within Normal Limits - Diagnostic (1) Ringworm Current Visit: Yes Status: Acute (2) Alcohol dependence with uncomplicated withdrawal Current Visit: Yes Status: Acute (3) Chronic pain Current Visit: Yes Status: Chronic Qualifiers: Chronic pain type: chronic pain syndrome Qualified Code(s): G89.4 - Chronic pain syndrome (4) Cocaine dependence Current Visit: Yes Status: Chronic Qualifiers: Substance use status: uncomplicated Qualified Code(s): F14.20 - Cocaine dependence, uncomplicated (5) Diabetes Current Visit: Yes Status: Chronic Qualifiers: Diabetes mellitus type: type 2 Diabetes mellitus complication status: without complication (6) History of bipolar disorder Current Visit: Yes Status: Chronic Comment: On seroquel. Current recipient of OPD care. (7) Hx of chronic arthritis Current Visit: Yes Status: Chronic (8) Nicotine dependence Current Visit: Yes Status: Chronic Qualifiers: Nicotine product type: cigarettes (9) Restless leg syndrome Current Visit: Yes Status: Chronic (10) Use of cane as ambulatory aid Current Visit: Yes Status: Chronic (11) Wheezing Current Visit: Yes Status: Acute Cleared for Admission [facility] - Detox or Rehab [facility] Level of Care: Medically Managed Detox Regimen/Protocol: Librium Breathalyzer - Breathalyzer Breathalyzer: 0 Urine Drug Screen - Test Device Lot number: [id number] Expiration date: 03/11/19 - Control Is test valid?: Yes - Results Drug screen NEGATIVE: No Urine drug screen results: NIKUNJ-Cocaine, BZO-Benzodiazepines Inpatient Rehab Admission - Rehab Decision to Admit Inpatient rehab admission?: No
[2018-06-17] MEDS ORDERED: IBUPROFEN 400 MG TABLET (FP) PO PRN (13:54)
[2018-06-17] MEDS ORDERED: ACETAMINOPHEN 325 MG TABLET (FP) PO PRN ×2 (13:54)
[2018-06-17] MEDS ORDERED: MAG HYDROX/AL HYDROX/SIMETH 30 ML UNIT-DOSE CUP PO PRN (13:54)
[2018-06-17] MEDS ORDERED: METHOCARBAMOL 500 MG TABLET PO PRN (13:54)
[2018-06-17] MEDS ORDERED: MAGNESIUM HYDROX 2400MG/30ML ORAL SUSPENSION 30 ML CUP PO PRN (13:54)
[2018-06-17] MEDS ORDERED: BISMUTH SUBSALICYLATE 262 MG/15 ML BTL PO PRN (13:54)
[2018-06-17] MEDS ORDERED: MAGNESIUM CITRATE 300 ML BOTTLE PO PRN (13:54)
[2018-06-17] MEDS ORDERED: MENTHOL/PHENOL 1 EACH UD MM PRN (13:54)
[2018-06-17] MEDS ORDERED: hydrOXYzine PAMOATE 25 MG CAPSULE (FP) PO PRN (13:54)
[2018-06-17] MEDS ORDERED: NICOTINE POLACRILEX 2 MG GUM BUC PRN (13:54)
[2018-06-17] MEDS ORDERED: chlordiazePOXIDE HCL 25 MG CAPSULE PO PRN (13:54)
[2018-06-17] MEDS ORDERED: ALBUTEROL SO4 0.083% IH SOL 2.5 MG/3 ML VIAL.NEB. NEB PRN (13:56)
--- NOTE | 2018-06-17 15:47 | PN ---
[facility] Progress Note Note: PATIENT REPORTED THAT HE IS TAKING SEROQUEL FOR INSOMNIA SEROQUEL 100 MG PO HS X 1 ORDERED PATIENT WILL BE SEEN BY A PSYCHIATRIST FOR SEROQUEL 400 MG
[2018-06-17] MEDS: chlordiazePOXIDE HCL 25 MG CAPSULE PO SCH ×2 (16:23→22:39)
[2018-06-17] MEDS: CLOTRIMAZOLE 1% CREAM 15 GM TUBE TP SCH ×2 (16:24→22:42)
[2018-06-17 17:46] LABS: HEMATOCRIT 40.7 % (35.4-49); HEMOGLOBIN 13.3 GM/dL (11.7-16.9); MCH 32.2 pg (25.7-33.7); MCHC 32.6 g/dl (32.0-35.9); MEAN CELL VOLUME 98.6 fl (80-96); MEAN PLT VOLUME 10.7 fl (7.5-11.1); PLATELET COUNT 182 K/MM3 (134-434); RBC 4.12 M/mm3 (4.00-5.60); RDW 16.3 % (11.9-15.9); WHITE BLOOD COUNT 4.2 K/mm3 (4.0-10.0)
[2018-06-17 18:02] LABS: ALBUMIN 4.1 g/dl (3.4-5.0); CALCIUM 8.9 mg/dL (8.5-10.1); CREATININE 0.7 mg/dL (0.55-1.3); POTASSIUM 4.8 mmol/L (3.5-5.1); TOT PROT 7.1 g/dl (6.4-8.2)
[2018-06-17] MEDS ORDERED: P-EPHED 60MG/TRIPROLIDI 2.5MG TABLET PO PRN (18:29)
[2018-06-17] MEDS: guaiFENesin 200 MG/10 ML 10 ML UNIT-DOSE CUPS PO PRN (18:40)
[2018-06-17] MEDS ORDERED: QUEtiapine FUMARATE 100 MG TABLET (FP) PO ONE (22:00)
[2018-06-17] MEDS ORDERED: GABAPENTIN 300 MG CAPSULE (FP) PO SCH (22:00)
[2018-06-17] MEDS: metFORMIN HCL 500 MG TABLET (FP) PO SCH (22:38)
[2018-06-17] MEDS: THIAMINE HCL 100 MG TABLET (FP) PO SCH (22:38)
[2018-06-17] MEDS: MELATONIN 5 MG TABLETS PO PRN (22:39)
[2018-06-17] MEDS: GABAPENTIN 100 MG CAPSULE (FP) PO SCH (22:41)
[2018-06-17] MEDS: rOPINIRole HCL 1 MG TABLET (FP) PO SCH (23:32)
[2018-06-18] MEDS: chlordiazePOXIDE HCL 25 MG CAPSULE PO SCH ×4 (05:09→22:36)
[2018-06-18] MEDS: GABAPENTIN 100 MG CAPSULE (FP) PO SCH (05:10)
[2018-06-18] MEDS: metFORMIN HCL 500 MG TABLET (FP) PO SCH ×2 (07:22→18:02)
[2018-06-18] MEDS ORDERED: NICOTINE 14 MG/24 HOURS TOPICAL PATCH TD SCH (10:00)
[2018-06-18 10:04] LABS: PH,URINE 6.5 (5.0-8.0); URINE APPEARANCE CLEAR; URINE BILIRUBIN NEGATIVE (NEGATIVE); URINE COLOR YELLOW; URINE GLUCOSE (UA) 3+ (NEGATIVE); URINE KETONE NEGATIVE (NEGATIVE); URINE LEUK ESTERASE NEGATIVE (NEGATIVE); URINE NITRITE NEGATIVE (NEGATIVE); URINE PROTEIN NEGATIVE (NEGATIVE); URINE UROBILINOGEN 0.2 mg/dL (0.2-1.0)
[2018-06-18] MEDS: CLOTRIMAZOLE 1% CREAM 15 GM TUBE TP SCH ×2 (10:14→22:35)
[2018-06-18] MEDS: PRENATAL VITAMINS W/ FOLIC ACID TABLET (FP) PO SCH (10:14)
[2018-06-18] MEDS ORDERED: NICOTINE 21 MG/24 HOURS TOPICAL PATCH TD SCH (10:19)
[2018-06-18] MEDS: INSULIN SLIDING SCALE (NOVOLOG) 1 VIAL SQ SCH ×2 (11:17→17:46)
[2018-06-18] MEDS: guaiFENesin 200 MG/10 ML 10 ML UNIT-DOSE CUPS PO PRN ×2 (11:26→18:04)
[2018-06-18] MEDS: GABAPENTIN 300 MG CAPSULE (FP) PO SCH ×2 (14:02→22:36)
--- NOTE | 2018-06-18 16:18 | PN ---
S CIWA - CIWA Score Nausea/Vomitin Muscle Tremors: 3 Anxiety: 4-Mod. Anxious/Guarded Agitation: 3 Paroxysmal Sweats: 3 Orientation: 0-Oriented Tacttile Disturbances: 1-Very Mild Itch/Numbness Auditory Disturbances: 0-None Visual Disturbances: 0-None Headache: 0-None Present CIWA-Ar Total Score: 17 [facility] Progress Note (SOAP) Subjective: Anxious, Tremors, Sweating, Nausea. Objective: PATIENT A & O X 3, OBSERVED AMBULATING ON UNIT UNASSISTED. IN NO ACUTE DISTRESS. 06/18/18 16:16 Vital Signs Temperature 96.2 F L 06/18/18 13:52 Pulse Rate 98 H 06/18/18 13:52 Respiratory Rate 18 06/18/18 13:52 Blood Pressure 110/67 06/18/18 13:52 O2 Sat by Pulse Oximetry (%) Laboratory Tests 06/17/18 06/17/18 06/17/18 14:00 14:00 14:00 WBC 4.2 RBC 4.12 Hgb 13.3 Hct 40.7 MCV 98.6 H MCH 32.2 MCHC 32.6 RDW 16.3 H Plt Count 182 MPV 10.7 D Sodium 138 Potassium 4.8 Chloride 100 Carbon Dioxide 32 Anion Gap 6 L BUN 7 Creatinine 0.7 Est GFR (CKD-EPI)AfAm 118.88 Est GFR (CKD-EPI)NonAf 102.57 POC Glucometer Random Glucose 152 H Calcium 8.9 Total Bilirubin 1.0 AST 117 H ALT 110 H Alkaline Phosphatase 83 Total Protein 7.1 Albumin 4.1 Urine Color Urine Appearance Urine pH Ur Specific [place] Urine Protein Urine Glucose (UA) Urine Ketones Urine Blood Urine Nitrite Urine Bilirubin Urine Urobilinogen Ur Leukocyte Esterase RPR Titer Nonreactive 06/17/18 06/17/18 06/18/18 15:03 16:43 05:08 WBC RBC Hgb Hct MCV MCH MCHC RDW Plt Count MPV Sodium Potassium Chloride Carbon Dioxide Anion Gap BUN Creatinine Est GFR (CKD-EPI)AfAm Est GFR (CKD-EPI)NonAf POC Glucometer 140 297 194 Random Glucose Calcium Total Bilirubin AST ALT Alkaline Phosphatase Total Protein Albumin Urine Color Urine Appearance Urine pH Ur Specific [place] Urine Protein Urine Glucose (UA) Urine Ketones Urine Blood Urine Nitrite Urine Bilirubin Urine Urobilinogen Ur Leukocyte Esterase RPR Titer 06/18/18 06/18/18 08:25 11:12 WBC RBC Hgb Hct MCV MCH MCHC RDW Plt Count MPV Sodium Potassium Chloride Carbon Dioxide Anion Gap BUN Creatinine Est GFR (CKD-EPI)AfAm Est GFR (CKD-EPI)NonAf POC Glucometer 274 Random Glucose Calcium Total Bilirubin AST ALT Alkaline Phosphatase Total Protein Albumin Urine Color Yellow Urine Appearance Clear Urine pH 6.5 D Ur Specific [place] 1.031 Urine Protein Negative Urine Glucose (UA) 3+ H Urine Ketones Negative Urine Blood Negative Urine Nitrite Negative Urine Bilirubin Negative Urine Urobilinogen 0.2 Ur Leukocyte Esterase Negative RPR Titer LABS NOTED. Assessment: 06/18/18 16:16 WITHDRAWAL SYMPTOMS. TACHYCRADIA. ELEVATED LIVER ENZYMES (ALT, AST). 06/18/18 16:18 Plan: CONTINUE DETOX. INCREASE DAILY PO FLUID / WATER INTAKE. REPEAT ALT, AST TOMORROW AM FOR ELEVATED ADMISSION LEVELS.
[2018-06-18] MEDS: THIAMINE HCL 100 MG TABLET (FP) PO SCH (22:36)
[2018-06-18] MEDS: MELATONIN 5 MG TABLETS PO PRN (22:46)
[2018-06-18] MEDS ORDERED: QUEtiapine FUMARATE 100 MG TABLET (FP) PO ONE (23:02)
[2018-06-18] MEDS ORDERED: hydrOXYzine PAMOATE 25 MG CAPSULE (FP) PO ONE (23:03)
[2018-06-18] MEDS: rOPINIRole HCL 1 MG TABLET (FP) PO SCH (23:03)
[2018-06-19] MEDS: GABAPENTIN 300 MG CAPSULE (FP) PO SCH ×2 (05:19→15:31)
[2018-06-19] MEDS: chlordiazePOXIDE HCL 25 MG CAPSULE PO SCH ×2 (05:19→10:32)
[2018-06-19] MEDS: metFORMIN HCL 500 MG TABLET (FP) PO SCH (06:05)
[2018-06-19] MEDS: INSULIN SLIDING SCALE (NOVOLOG) 1 VIAL SQ SCH ×2 (07:45→12:29)
[2018-06-19] MEDS ORDERED: INSULIN SLIDING SCALE (NOVOLOG) 1 VIAL SQ ONE (07:49)
[2018-06-19] MEDS: PRENATAL VITAMINS W/ FOLIC ACID TABLET (FP) PO SCH (10:32)
[2018-06-19] MEDS: CLOTRIMAZOLE 1% CREAM 15 GM TUBE TP SCH (10:33)
[2018-06-19 11:36] LABS: SGOT/AST 32 U/L (15-37); SGPT/ALT 60 U/L (13-61)
--- NOTE | 2018-06-19 12:20 | CONSULT ---
[facility] Psychiatric Consult - Data Date of interview: 06/19/18 Admission source: [facility] Identifying data: Readmission to [facility] for this 58 y/o male self- referred for detoxification (alcohol, benzodiazepine, cocaine). Examined at [address] [place] [address]. Patient is , a father of two, homeless, unemployed and supported on [facility] benefits. Substance Abuse History: Patient confirms current [facility] report on his addictions. Details as follows : Smoking history: Current every day smoker. Have you smoked in the past 12 months: Yes. Aproximately how many cigarettes per day: 12. Cigars Per Day: 0. Hx Chewing Tobacco Use: No. Initiated information on smoking cessation: Yes. 'Breaking Loose' booklet given: 06/17/18. - Substance & Tx. History. Hx Alcohol Use: Yes. Hx Substance Use: Yes. Substance Use Type : Alcohol, Tranquilizers. Hx Substance Use Treatment: Yes ([facility] April 2018) . - Substances abused. Alcohol. Substance route: Oral. Frequency: Daily. Amount used: VODKA- 3 PT DAILY BEERS- 7 CAN 24OZ. Age of first use: 16. Date of last use: 06/16/18. Alprazolam (Xanax). Substance route: Oral. Frequency: Daily. Amount used: 6MG. Age of first use: 28. Date of last use: 06/15/18 Medical History: Remarkable for diabetes mellitus, restless leg syndrome, arthritis and antecedent of osteomyelitis (right index finger). Psychiatric History: First contact with Psychiatry : age 28. Patient reports a history of multiple psychiatric hospitalizations ([facility] in [facility] + various facilities located in [place]). Diagnosed with Bipolar Disorder. Mr Abreu sees a psychiatrist for medication management (seroquel 400 mg/hs) at the [facility] in [place]. Patient insists that he is adherent to his medication (known to be on seroquel for several years). No reported history of suicide attempts. Physical/Sexual Abuse/Trauma History: Patient denies. Additional Comment: Urine drug screen results: NIKUNJ-Cocaine, BZO- Benzodiazepines. Noted. Mental Status Exam - Mental Status Exam Alert and Oriented to: Time, Place, Person Patient Appearance: Well Groomed Mood: Anxious, Apprehensive Affect: Appropriate, Normal Range Patient Behavior: Fatigued, Cooperative Speech Pattern: Clear, Appropriate Voice Loudness: Normal Thought Process: Goal Oriented Thought Disorder: Not Present Hallucinations: Denies Suicidal Ideation: Denies Homicidal Ideation: Denies Insight/Judgement: Poor Sleep: Poorly, Difficulty falling asleep Appetite: Good Muscle strength/Tone: Normal Gait/Station: Normal Psychiatric Findings - Problem List ([place] 1, 2,3) (1) Alcohol dependence with uncomplicated withdrawal Current Visit: Yes Status: Acute (2) Benzodiazepine dependence Current Visit: Yes Status: Chronic (3) Cocaine dependence Current Visit: Yes Status: Chronic Qualifiers: Substance use status: uncomplicated Qualified Code(s): F14.20 - Cocaine dependence, uncomplicated (4) Nicotine dependence Current Visit: Yes Status: Chronic Qualifiers: Nicotine product type: cigarettes (5) Substance induced mood disorder Current Visit: Yes Status: Chronic (6) History of bipolar disorder Current Visit: Yes Status: Chronic Comment: On seroquel. Current recipient of [facility] care. (7) Insomnia Current Visit: Yes Status: Chronic - Initial Treatment Plan Initial Treatment Plan: Psychoeducation. Sleep hygiene. Detoxification. AA meetings. Medications resumed as seroquel 200 mg po hs (reduced for prevention of oversedation). Side effects/benefits discussed with patient. Mr Abreu gave verbal consent to Observation.
[2018-06-19 16:02] VITALS: BP 109/72; PULSE 102; TEMP 96.9
--- NOTE | 2018-06-19 16:43 | PN ---
[facility] CIWA - CIWA Score Nausea/Vomitin-No Nausea/No Vomiting Muscle Tremors: None Anxiety: 4-Mod. Anxious/Guarded Agitation: 4-Moderately Restless Paroxysmal Sweats: 3 Orientation: 0-Oriented Tacttile Disturbances: 2-Mild Itch/Numbness/Burn Auditory Disturbances: 0-None Visual Disturbances: 2-Mild Sensitivity Headache: 0-None Present CIWA-Ar Total Score: 15 BHS Progress Note (SOAP) Subjective: Fatigue, Sweating, Anxious, Body Aches. Objective: PATIENT A & O X 3, OBSERVED AMBULATING ON UNIT UNASSISTED. IN NO ACUTE DISTRESS. 06/19/18 16:43 Vital Signs Temperature 96.9 F L 06/19/18 16:01 Pulse Rate 102 H 06/19/18 16:01 Respiratory Rate 18 06/19/18 16:01 Blood Pressure 109/72 06/19/18 16:01 O2 Sat by Pulse Oximetry (%) Laboratory Tests 06/17/18 06/17/18 06/17/18 14:00 14:00 14:00 WBC 4.2 RBC 4.12 Hgb 13.3 Hct 40.7 MCV 98.6 H MCH 32.2 MCHC 32.6 RDW 16.3 H Plt Count 182 MPV 10.7 D Sodium 138 Potassium 4.8 Chloride 100 Carbon Dioxide 32 Anion Gap 6 L BUN 7 Creatinine 0.7 Est GFR (CKD-EPI)AfAm 118.88 Est GFR (CKD-EPI)NonAf 102.57 POC Glucometer Random Glucose 152 H Calcium 8.9 Total Bilirubin 1.0 AST 117 H ALT 110 H Alkaline Phosphatase 83 Total Protein 7.1 Albumin 4.1 Urine Color Urine Appearance Urine pH Ur Specific [place] Urine Protein Urine Glucose (UA) Urine Ketones Urine Blood Urine Nitrite Urine Bilirubin Urine Urobilinogen Ur Leukocyte Esterase RPR Titer Nonreactive 06/17/18 06/17/18 06/18/18 15:03 16:43 05:08 WBC RBC Hgb Hct MCV MCH MCHC RDW Plt Count MPV Sodium Potassium Chloride Carbon Dioxide Anion Gap BUN Creatinine Est GFR (CKD-EPI)AfAm Est GFR (CKD-EPI)NonAf POC Glucometer 140 297 194 Random Glucose Calcium Total Bilirubin AST ALT Alkaline Phosphatase Total Protein Albumin Urine Color Urine Appearance Urine pH Ur Specific [place] Urine Protein Urine Glucose (UA) Urine Ketones Urine Blood Urine Nitrite Urine Bilirubin Urine Urobilinogen Ur Leukocyte Esterase RPR Titer 06/18/18 06/18/18 06/18/18 08:25 11:12 16:17 WBC RBC Hgb Hct MCV MCH MCHC RDW Plt Count MPV Sodium Potassium Chloride Carbon Dioxide Anion Gap BUN Creatinine Est GFR (CKD-EPI)AfAm Est GFR (CKD-EPI)NonAf POC Glucometer 274 191 Random Glucose Calcium Total Bilirubin AST ALT Alkaline Phosphatase Total Protein Albumin Urine Color Yellow Urine Appearance Clear Urine pH 6.5 D Ur Specific [place] 1.031 Urine Protein Negative Urine Glucose (UA) 3+ H Urine Ketones Negative Urine Blood Negative Urine Nitrite Negative Urine Bilirubin Negative Urine Urobilinogen 0.2 Ur Leukocyte Esterase Negative RPR Titer 06/19/18 06/19/18 06/19/18 05:18 08:00 12:23 WBC RBC Hgb Hct MCV MCH MCHC RDW Plt Count MPV Sodium Potassium Chloride Carbon Dioxide Anion Gap BUN Creatinine Est GFR (CKD-EPI)AfAm Est GFR (CKD-EPI)NonAf POC Glucometer 244 392 Random Glucose Calcium Total Bilirubin AST 32 ALT 60 Alkaline Phosphatase Total Protein Albumin Urine Color Urine Appearance Urine pH Ur Specific [place] Urine Protein Urine Glucose (UA) Urine Ketones Urine Blood Urine Nitrite Urine Bilirubin Urine Urobilinogen Ur Leukocyte Esterase RPR Titer LABS NOTED. Assessment: 06/19/18 16:43 WITHDRAWAL SYMPTOMS. ELEVATED LIVER ENZYMES(ALT, AST). 06/19/18 16:45 Plan: CONTINUE DETOX. INCREASE DAILY PO FLUID / WATER INTAKE.
--- NOTE | 2018-06-19 16:54 | DS ---
[facility] Detox Discharge Summary Admission Date: 06/17/18 Discharge Date: 06/19/18 - History Present History: Alcohol Dependence, Cocaine Dependence, Sedative Dependence Additional Comments: DESPITE ATTEMPTS BY STAFF AT RE-DIRECTION, PATIENT OBSERVED ENGAGING IN VERBALLY ABUSIVE BEHAVIOR THROUGHOUT DAY. PATIENT VERBALLY THREATENED RN (Keyona DUNCAN). PATIENT ALSO OBSERVED INITIATING AND ENGAGING IN VERBAL ALTERCATION WITH ANOTHER PATIENT WHILE OTHER PATIENT WAS SPEAKING ON TELEPHONE. AFTER MULTI- DISCIPLINARY (NEEDLE BAR MOLDER, RN, AND INSPECTOR RAW QUARTZ) CONFERENCE, PATIENT DETERMINED TO BE INVOLUNTARILY DISCHARGED FROM DETOX UNIT. PATIENT GIVEN REFERRAL TO [facility] ([address]) ALTERNATE CARE PROGRAM. PATIENT ADVISED TO GO IMMEDIATELY TO NEAREST ER SHOULD ANY INTOLERABLE WITHDRAWAL / DETOX SYMPTOMS DEVELOP AT ANY TIME. PRESCRIPTION FOR METFORMIN SENT TO [facility] ([address] [place], [place]) FOR AFTERCARE. PATIENT ADVISED TO FOLLOW-UP WITH BACK STAYER SOON POSSIBLE AFTER DISCHARGE FROM DETOX UNIT FOR GENERAL MEDICAL ASSESSMENT AND FOR HISTORY OF DM AND FOR ELEVATED LIVER ENZYMES NOTED ON ADMISSION LAB ASSESSMENT. PATIENT VERBALIZED UNDERSTANDING OF ALL INFORMATION / RECOMMENDATIONS PRESENTED TO HIM PRIOR TO DEPARTURE FROM DETOX UNIT. COPIES OF RESULTS OF ALL LABS DRAWN WHILE ADMITTED FOR DETOX GIVEN TO PATIENT AT TIME IN WHICH HE WAS DISCHARGED FROM DETOX UNIT. PATIENT LEFT DETOX UNIT IN STABLE MEDICAL CONDITION. Pertinent Past History: Restless Leg Syndrome, Type II DM, Bipolar Disorder, Chronic Osteoarthritis, Elevated Liver Enzymes (While admitted for Detox), Nicotine Dependence, Use of Cane As An Ambulatory Aid, Schizophrenia, Ringworm, Nicotine Dependence, Insomnia. - Physical Exam Results Vital Signs: Vital Signs Temperature 96.9 F L 06/19/18 16:01 Pulse Rate 102 H 06/19/18 16:01 Respiratory Rate 18 06/19/18 16:01 Blood Pressure 109/72 06/19/18 16:01 O2 Sat by Pulse Oximetry (%) Pertinent Admission Physical Exam Findings: WITHDRAWAL SYMPTOMS. Laboratory Tests 06/17/18 06/17/18 06/17/18 14:00 14:00 14:00 WBC 4.2 RBC 4.12 Hgb 13.3 Hct 40.7 MCV 98.6 H MCH 32.2 MCHC 32.6 RDW 16.3 H Plt Count 182 MPV 10.7 D Sodium 138 Potassium 4.8 Chloride 100 Carbon Dioxide 32 Anion Gap 6 L BUN 7 Creatinine 0.7 Est GFR (CKD-EPI)AfAm 118.88 Est GFR (CKD-EPI)NonAf 102.57 POC Glucometer Random Glucose 152 H Calcium 8.9 Total Bilirubin 1.0 AST 117 H ALT 110 H Alkaline Phosphatase 83 Total Protein 7.1 Albumin 4.1 Urine Color Urine Appearance Urine pH Ur Specific [place] Urine Protein Urine Glucose (UA) Urine Ketones Urine Blood Urine Nitrite Urine Bilirubin Urine Urobilinogen Ur Leukocyte Esterase RPR Titer Nonreactive 06/17/18 06/17/18 06/18/18 15:03 16:43 05:08 WBC RBC Hgb Hct MCV MCH MCHC RDW Plt Count MPV Sodium Potassium Chloride Carbon Dioxide Anion Gap BUN Creatinine Est GFR (CKD-EPI)AfAm Est GFR (CKD-EPI)NonAf POC Glucometer 140 297 194 Random Glucose Calcium Total Bilirubin AST ALT Alkaline Phosphatase Total Protein Albumin Urine Color Urine Appearance Urine pH Ur Specific [place] Urine Protein Urine Glucose (UA) Urine Ketones Urine Blood Urine Nitrite Urine Bilirubin Urine Urobilinogen Ur Leukocyte Esterase RPR Titer 06/18/18 06/18/18 06/18/18 08:25 11:12 16:17 WBC RBC Hgb Hct MCV MCH MCHC RDW Plt Count MPV Sodium Potassium Chloride Carbon Dioxide Anion Gap BUN Creatinine Est GFR (CKD-EPI)AfAm Est GFR (CKD-EPI)NonAf POC Glucometer 274 191 Random Glucose Calcium Total Bilirubin AST ALT Alkaline Phosphatase Total Protein Albumin Urine Color Yellow Urine Appearance Clear Urine pH 6.5 D Ur Specific [place] 1.031 Urine Protein Negative Urine Glucose (UA) 3+ H Urine Ketones Negative Urine Blood Negative Urine Nitrite Negative Urine Bilirubin Negative Urine Urobilinogen 0.2 Ur Leukocyte Esterase Negative RPR Titer 06/19/18 06/19/18 06/19/18 05:18 08:00 12:23 WBC RBC Hgb Hct MCV MCH MCHC RDW Plt Count MPV Sodium Potassium Chloride Carbon Dioxide Anion Gap BUN Creatinine Est GFR (CKD-EPI)AfAm Est GFR (CKD-EPI)NonAf POC Glucometer 244 392 Random Glucose Calcium Total Bilirubin AST 32 ALT 60 Alkaline Phosphatase Total Protein Albumin Urine Color Urine Appearance Urine pH Ur Specific [place] Urine Protein Urine Glucose (UA) Urine Ketones Urine Blood Urine Nitrite Urine Bilirubin Urine Urobilinogen Ur Leukocyte Esterase RPR Titer LABS NOTED. - Treatment Hospital Course: Detoxed Safely - Medication Discharge Medications: Ambulatory Orders Fluticasone Prop 0.05% Nasal [Flonase -] 2 spray NS DAILY 12/29/17 Quetiapine Fumarate [Seroquel -] 400 mg PO HS 12/29/17 Bisacodyl [Dulcolax -] 5 mg PO BID 02/24/18 Ropinirole HCl [Requip -] 1 mg PO HS #30 tablet 03/08/18 Gabapentin [Neurontin] 600 mg PO TID 06/18/18 Metformin HCl [Glucophage] 1,000 mg PO BID 30 Days #60 tablet 06/19/18 - Diagnosis (1) Diabetes Current Visit: Yes Status: Chronic Qualifiers: Diabetes mellitus type: type 2 Diabetes mellitus chcf insulin use: with terminal block assembler use Diabetes mellitus complication status: without complication Qualified Code(s): E11.9 - Type 2 diabetes mellitus without complications; Z79.4 - group home (current) use of insulin (2) Nicotine dependence Current Visit: Yes Status: Chronic Qualifiers: Nicotine product type: cigarettes Substance use status: uncomplicated Qualified Code(s): F17.210 - Nicotine dependence, cigarettes, uncomplicated (3) Cocaine dependence Current Visit: Yes Status: Chronic Qualifiers: Substance use status: uncomplicated Qualified Code(s): F14.20 - Cocaine dependence, uncomplicated (4) Chronic pain Current Visit: Yes Status: Chronic Qualifiers: Chronic pain type: chronic pain syndrome Qualified Code(s): G89.4 - Chronic pain syndrome (5) Restless leg syndrome Current Visit: Yes Status: Chronic (6) Alcohol dependence with uncomplicated withdrawal Current Visit: Yes Status: Acute (7) Hx of chronic arthritis Current Visit: Yes Status: Chronic (8) History of bipolar disorder Current Visit: Yes Status: Chronic (9) Ringworm Current Visit: Yes Status: Acute (10) Wheezing Current Visit: Yes Status: Acute (11) Use of cane as ambulatory aid Current Visit: Yes Status: Chronic (12) Elevated liver enzymes Current Visit: Yes Status: Acute (13) Benzodiazepine dependence Current Visit: Yes Status: Chronic (14) Insomnia Current Visit: Yes Status: Chronic Qualifiers: Insomnia type: unspecified Qualified Code(s): G47.00 - Insomnia, unspecified (15) Substance induced mood disorder Current Visit: Yes Status: Chronic - AMA Did Patient Leave Against Medical Advice: No (PATIENT INVOLUNTARILY DISCHARGED DUE TO VERBALLY THREATENING BEHAVIOR.)
[2018-06-19] MEDS ORDERED: chlordiazePOXIDE HCL 10 MG CAPSULE PO PRN (17:00)
[2018-06-19] MEDS ORDERED: chlordiazePOXIDE HCL 10 MG CAPSULE PO SCH (17:00)
[2018-06-19] MEDS ORDERED: QUEtiapine FUMARATE 200 MG TABLET PO SCH (22:00)
[2018-06-20] MEDS ORDERED: chlordiazePOXIDE HCL 10 MG CAPSULE PO SCH (17:00)
== END 2018-06-19 17:13 | disposition home or self-care (01) | DRG 897 ==
LOC: YASAS 10:34 → Y3N 14:58
PROVIDERS: ADMIT Surgery; ATTEND Surgery
PROC: HZ2ZZZZ Detoxification Services for Substance Abuse Treatment (ICD-10-PCS; principal; 2018-06-17)
DX: F10.230 Alcohol dependence with withdrawal, uncomplicated (principal); F14.20 Cocaine dependence, uncomplicated; F13.230 Sedative, hypnotic or anxiolytic dependence with withdrawal, uncomplicated; F17.210 Nicotine dependence, cigarettes, uncomplicated; F19.24 Other psychoactive substance dependence with psychoactive substance-induced mood disorder; F91.8 Other conduct disorders; G47.00 Insomnia, unspecified; E11.9 Type 2 diabetes mellitus without complications; G89.4 Chronic pain syndrome; G25.81 Restless legs syndrome; M19.90 Unspecified osteoarthritis, unspecified site; B35.8 Other dermatophytoses; R06.2 Wheezing; R94.5 Abnormal results of liver function studies; R00.0 Tachycardia, unspecified; R26.2 Difficulty in walking, not elsewhere classified; Z99.89 Dependence on other enabling machines and devices; Z79.4 Long term (current) use of insulin; Z87.39 Personal history of other diseases of the musculoskeletal system and connective tissue; Z79.84 Long term (current) use of oral hypoglycemic drugs; Z59.0 Homelessness
CPT/HCPCS: 36415; 80053; 81003; 82962; 84450; 84460; 85027; 86593; 94640

== ENCOUNTER 2023-01-27 15:29 | Inpatient (IN) | payer OTHER ==
[2023-01-27 15:49] VITALS: BMI 22.8
[2023-01-27] MEDS ORDERED: chlordiazePOXIDE HCL 25 MG CAPSULE PO SCH (17:00)
[2023-01-27] MEDS ORDERED: BENZONATATE 200 MG CAPSULE PO PRN (17:37)
[2023-01-27] MEDS ORDERED: LOPERAMIDE HCL 2 MG CAPSULE PO PRN (17:37)
[2023-01-27] MEDS ORDERED: IBUPROFEN 400 MG TABLET (FP) PO PRN (17:37)
[2023-01-27] MEDS ORDERED: POLYETHYLENE GLYCOL (HEALTHYLAX) 3350 17 GM PACKET PO PRN (17:37)
[2023-01-27] MEDS ORDERED: BISMUTH SUBSALICYLATE 524 MG/30 ML PO PRN (17:37)
[2023-01-27] MEDS ORDERED: P-EPHED 60MG/TRIPROLIDI 2.5MG TABLET PO PRN (17:37)
[2023-01-27] MEDS ORDERED: guaiFENesin 600 MG TABLET.ER (FP) PO PRN (17:37)
[2023-01-27] MEDS ORDERED: ONDANSETRON *ODT* 4 MG TABLET SL PRN (17:37)
[2023-01-27] MEDS ORDERED: BENZOCAINE/MENTHOL (CHLORASEPTIC ) LOZENGE MM PRN (17:37)
[2023-01-27] MEDS ORDERED: MAG HYDROX/AL HYDROX/SIMETH 30 ML UNIT-DOSE CUP PO PRN (17:37)
[2023-01-27] MEDS ORDERED: MAGNESIUM HYDROX 2400MG/30ML ORAL SUSPENSION 30 ML CUP PO PRN (17:37)
[2023-01-27] MEDS ORDERED: DICYCLOMINE HCL 10 MG CAPSULE PO PRN (17:37)
[2023-01-27] MEDS ORDERED: ACETAMINOPHEN 325 MG TABLET (FP) PO PRN (17:37)
[2023-01-27] MEDS ORDERED: IBUPROFEN 600 MG TABLET (FP) PO PRN (17:37)
[2023-01-27] MEDS ORDERED: chlordiazePOXIDE HCL 25 MG CAPSULE PO PRN (17:41)
[2023-01-27] MEDS: chlordiazePOXIDE HCL 25 MG CAPSULE PO SCH ×2 (18:15→22:10)
[2023-01-27] MEDS: BACITRACIN 0.9 GM PACKET TP SCH (22:09)
[2023-01-27] MEDS: THIAMINE HCL 100 MG TABLET (FP) PO SCH (22:10)
[2023-01-27] MEDS: MELATONIN 5 MG TABLETS PO SCH (22:10)
[2023-01-28] MEDS: chlordiazePOXIDE HCL 25 MG CAPSULE PO SCH ×4 (05:19→22:11)
[2023-01-28] MEDS: PRENATAL VITAMINS W/ FOLIC ACID TABLET (FP) PO SCH (10:30)
[2023-01-28] MEDS: BACITRACIN 0.9 GM PACKET TP SCH ×2 (10:30→22:11)
[2023-01-28] MEDS: INSULIN (NOVOLOG) ASPART 100 UNITS/ML 10ML VIAL SQ SCH ×3 (11:52→22:12)
[2023-01-28] MEDS ORDERED: INSULIN SLIDING SCALE (NOVOLOG) 1 VIAL SQ ONE (12:00)
[2023-01-28 13:23] LABS: HEMOGLOBIN 13.7 GM/dL (11.7-16.9); MCH 32.7 pg (25.7-33.7); MCHC 33.3 g/dl (32.0-35.9); MEAN PLT VOLUME 10.1 fl (7.5-11.1); PLATELET COUNT 200 10^3/uL (134-434); RBC 4.19 M/mm3 (4.00-5.60); RDW 13.9 % (11.9-15.9); WHITE BLOOD COUNT 8.2 K/mm3 (4.0-10.0)
[2023-01-28] MEDS: DOCUSATE SODIUM 100 MG CAPSULE (FP) PO SCH ×2 (13:39→22:11)
[2023-01-28 13:48] LABS: CHLORIDE 104 mmol/L (98-107); POTASSIUM 4.3 mmol/L (3.5-5.1); SODIUM 139 mmol/L (136-145)
[2023-01-28 14:05] LABS: ANION GAP 9 mmol/L (4-13); BLOOD UREA NITROGEN 17.5 mg/dL (7-18); CO2 27 mmol/L (21-32); GLUCOSE,RANDOM 291 mg/dL (74-106)
[2023-01-28 14:06] LABS: ALBUMIN 3.4 g/dl (3.4-5.0); CALCIUM 9.1 mg/dL (8.5-10.1)
[2023-01-28 14:07] LABS: CREATININE 0.9 mg/dL (0.55-1.3)
[2023-01-28 14:08] LABS: SGOT/AST 18 U/L (15-37)
[2023-01-28 14:09] LABS: BILIRUBIN,TOTAL 0.4 mg/dL (0.2-1); TOT PROT 6.2 g/dl (6.4-8.2)
[2023-01-28 14:10] LABS: ALK PHOS 81 U/L (45-117); SGPT/ALT 20 U/L (13-61)
[2023-01-28] MEDS: metFORMIN HCL 500 MG TABLET (FP) PO SCH (17:19)
[2023-01-28] MEDS ORDERED: rOPINIRole HCL 1 MG TABLET (FP) PO SCH (22:00)
[2023-01-28] MEDS ORDERED: ATORVASTATIN CA 40 MG TABLET (FP) PO SCH (22:00)
[2023-01-28] MEDS ORDERED: QUEtiapine FUMARATE 200 MG TABLET PO SCH (22:00)
[2023-01-28] MEDS: MELATONIN 5 MG TABLETS PO SCH (22:12)
[2023-01-28] MEDS: THIAMINE HCL 100 MG TABLET (FP) PO SCH (22:12)
[2023-01-29] MEDS: chlordiazePOXIDE HCL 25 MG CAPSULE PO SCH ×2 (05:55→10:20)
[2023-01-29] MEDS: DOCUSATE SODIUM 100 MG CAPSULE (FP) PO SCH (05:56)
[2023-01-29] MEDS: metFORMIN HCL 500 MG TABLET (FP) PO SCH (06:12)
[2023-01-29] MEDS: INSULIN (NOVOLOG) ASPART 100 UNITS/ML 10ML VIAL SQ SCH (06:13)
[2023-01-29 09:35] VITALS: BP 116/62; PULSE 77; RESP 18; TEMP 97.6
[2023-01-29] MEDS ORDERED: PANTOPRAZOLE 20 MG TABLET PO SCH (10:00)
[2023-01-29] MEDS: PRENATAL VITAMINS W/ FOLIC ACID TABLET (FP) PO SCH (10:19)
[2023-01-29] MEDS: BACITRACIN 0.9 GM PACKET TP SCH (10:19)
[2023-01-30] MEDS ORDERED: chlordiazePOXIDE HCL 10 MG CAPSULE PO PRN
[2023-01-30] MEDS ORDERED: chlordiazePOXIDE HCL 10 MG CAPSULE PO SCH (05:00)
[2023-01-31] MEDS ORDERED: chlordiazePOXIDE HCL 10 MG CAPSULE PO SCH (05:00)
[2023-02-01] MEDS ORDERED: chlordiazePOXIDE HCL 10 MG CAPSULE PO ONE (05:00)
== END 2023-01-29 11:19 | disposition left against medical advice (07) | DRG 894 ==
LOC: YASAS 15:29 → Y3N 16:50
PROVIDERS: ADMIT Allergy & Immunology; ATTEND Surgery
PROC: HZ2ZZZZ Detoxification Services for Substance Abuse Treatment (ICD-10-PCS; principal; 2023-01-27)
DX: F10.230 Alcohol dependence with withdrawal, uncomplicated (principal); F14.20 Cocaine dependence, uncomplicated; F17.210 Nicotine dependence, cigarettes, uncomplicated; F31.9 Bipolar disorder, unspecified; E78.5 Hyperlipidemia, unspecified; G47.00 Insomnia, unspecified; K21.9 Gastro-esophageal reflux disease without esophagitis; K59.00 Constipation, unspecified; E11.9 Type 2 diabetes mellitus without complications; Z79.4 Long term (current) use of insulin
CPT/HCPCS: 36415; 80053; 80307; 82962; 83036; 85027; 86780; 87635